=== PATIENT | male | born 1945 | race Caucasian/White ===

== ENCOUNTER 2023-06-04 22:10 | Inpatient (IN) | payer MEDICARE, BC, OTHER ==
[~2023-06-04 22:10] MED LIST: Iopamidol 370 76% 100 ML VIAL ONE
[2023-06-04 22:55] LABS: ALT (SGPT) 35 U/L (8-55); AST (SGOT) 43 U/L (5-34); Albumin 3.3 g/dL (3.4-4.8); Alkaline Phosphatase 56 U/L (40-110); Anion Gap 16 mmol/L (10-20); BUN (Urea Nitrogen) 20 mg/dL (8.4-25.7); Calc. Creatinine Clearance 0 mL/min (70-130); Calcium 7.6 mg/dL (7.8-10.44); Carbon Dioxide 17 mmol/L (23-31); Chloride 108 mmol/L (98-107); Estimated GFR 53; Globulin 1.4 g/dL (2.4-3.5); Glucose 98 mg/dL (83-110); Potassium 3.1 mmol/L (3.5-5.1); Protein, Total 4.7 g/dL (5.8-8.1); Sodium 138 mmol/L (136-145)
[2023-06-04 22:56] LABS: Hemoglobin 10.5 g/dL (13.5-17.5); Mean Corpuscular HGB CONC 33.9 g/dL (32.0-36.0); Mean Corpuscular Hemoglobin 34.9 pg (27.0-33.0); Platelet Count 124 10x3/uL (150-450); RBC Distribution Width 20.1 % (11.5-14.5); Red Blood Cell (RBC) Count 3.01 10x6/uL (4.32-5.72)
[2023-06-04 22:57] LABS: Bilirubin Neg (Negative); Blood, Urine 250 (Negative); Clarity Clear (Clear); Glucose, Urine (Dipstick) Normal (Negative); Ketone, Urine Negative (Negative); Leukocyte Negative (Negative); Nitrite Negative (Negative); Protein, Urine (Dipstick) 30 mg/dl (Neg-Trace); Urobilinogen Normal mg/dL (Less than 2)
[2023-06-04 22:58] LABS: MDiff Complete? YES
[2023-06-04 23:06] LABS: Acetaminophen Less than 10 mcg/mL (10.0-30.0); Alcohol Less than 10.0 mg/dL (Less than 10); Salicylate Less than 8.0 mg/dL (15.0-30.0)
[2023-06-04 23:08] LABS: Amphetamine Not Detected (NotDetected); Barbiturates Screen Not Detected (NotDetected); Benzodiazepine Screen Not Detected (NotDetected); Cocaine Metabolite Screen Not Detected (NotDetected); Methadone Not Detected (NotDetected); Methamphetamine Not Detected (NotDetected); Opiate Screen Detected (NotDetected); Oxycodone Screen Not Detected (NotDetected); Phencyclidine (PCP) Not Detected (NotDetected); THC/Cannabinoid Screen Not Detected (NotDetected); Tricyclic Screen Not Detected (NotDetected)
[2023-06-04 23:12] LABS: Troponin I 0.105 ng/mL (< 0.028)
[2023-06-04 23:17] LABS: Bacteria/HPF None Seen HPF (None Seen); CAUTI Indications for Culture Fever or rigors; RBC/HPF 0-3 HPF (0-3); Squamous Epithelial 0-3 HPF (0-3); WBC/HPF 0-3 HPF (0-3)
[2023-06-04 23:19] LABS: Urine Culture Reflex No No
[2023-06-04] MEDS ORDERED: HYDROcodone/Acetaminophen 5/325 mg Tablet ONE (23:26)
[2023-06-04 23:31] LABS: SARS-CoV-2 NAA Rapid Test Not Detected (NotDetected)
[2023-06-04] MEDS ORDERED: HYDROcodone/Acetaminophen 10/325 mg Tablet ONE (23:31)
[2023-06-04] MEDS ORDERED: traMADol HCl 50 MG TAB ONE (23:41)
[2023-06-04] MEDS ORDERED: VANCOMYCIN 2 GRAM/400 ML BAG 2 GM in Premix 1 BAG IVPB ONE (23:45)
[2023-06-05] MEDS ORDERED: Communication Order-Pharmacy FS ONE (00:21)
[2023-06-05] MEDS ORDERED: Lactated Ringer's 1,000 ML IV SCH (00:30)
[2023-06-05] MEDS ORDERED: NOREPINEPHRINE 8 MG/250 ML-D5W 250 ML IVPB SCH (00:30)
[2023-06-05 00:39] VITALS: BMI 27.6
[2023-06-05] MEDS ORDERED: Potassium Chloride 20 MEQ TAB PO SCH (00:45)
[2023-06-05] MEDS ORDERED: tiZANidine HCl 4 MG TAB PO PRN (00:49)
[2023-06-05] MEDS ORDERED: HYDROcodone/Acetaminophen 10/325 mg Tablet PO PRN (00:49)
[2023-06-05] MEDS ORDERED: Hydrocortisone Sod Succ/PF 100 mg/2 ml Vial IVP SCH (01:00)
[2023-06-05] MEDS ORDERED: Vasopressin 20 UNITS in Sodium Chloride 0.9% 50 ML IV SCH (01:00)
[2023-06-05 01:14] LABS: Lymphocytes 22 % (21-51); Neutrophil 40 % (42-75); Reactive Lymphocytes 2 % (0-10)
[2023-06-05 01:15] LABS: Monocytes 36 % (0-10)
[2023-06-05] MEDS: NS 0.9% w/ 40 MEQ KCL 1,000 ML IV SCH ×2 (01:17→06:04)
[2023-06-05 01:20] LABS: Anisocytosis SLIGHT = 6-15 cells (100X) (0-5/hpf); Crenated RBC SLIGHT = 1-5 cells (100X) (None Seen); Macrocytosis SLIGHT = 6-15 cells (100X) (0-5/hpf); Microcytosis SLIGHT = 6-15 cells (100X) (0-5/hpf); Ovalocytes SLIGHT = 2-5 cells (100X) (0-1/hpf); Schistocytes SLIGHT = 2-5 cells (100X) (0-1/hpf)
[2023-06-05 01:21] LABS: Platelet Adequacy Comment Appears Decreased
[2023-06-05 01:23] LABS: Reflex for Review?? YES
[2023-06-05] MEDS: LevoFLOXacin 750 mg/D5W 750 MG in Premix 1 BAG IVPB SCH (01:30)
[2023-06-05 01:39] LABS: Lactic Acid 3.8 mmol/L (0.5-2.2)
[2023-06-05 01:43] LABS: Magnesium 1.5 mg/dL (1.6-2.6)
[2023-06-05] MEDS: Cefepime 2 GM in Sodium Chloride 0.9% 100 ML IVPB SCH ×3 (01:55→17:41)
[2023-06-05] MEDS ORDERED: Magnesium 2 GM/50 ML(in water) 2 GM in Premix 1 BAG IVPB SCH (02:00)
[2023-06-05 02:23] LABS: Troponin I 0.133 ng/mL (< 0.028)
[2023-06-05 05:13] LABS: Hematocrit 31.1 % (38.8-50.0); Hemoglobin 10.6 g/dL (13.5-17.5); Mean Corpuscular HGB CONC 34.1 g/dL (32.0-36.0); Mean Corpuscular Hemoglobin 34.5 pg (27.0-33.0); Mean Corpuscular Volume 101.3 fl (81.2-95.1); Mean Platelet Volume 12.4 fl (7.4-10.4); Platelet Count 120 10x3/uL (150-450); RBC Distribution Width 20.1 % (11.5-14.5); Red Blood Cell (RBC) Count 3.07 10x6/uL (4.32-5.72); White Blood Cell (WBC) Count 1.2 10x3/uL (3.5-10.5)
[2023-06-05 05:14] LABS: Lactic Acid 2.1 mmol/L (0.5-2.2); MDiff Complete? YES
[2023-06-05 05:18] LABS: Anion Gap 16 mmol/L (10-20); BUN (Urea Nitrogen) 19 mg/dL (8.4-25.7); Calc. Creatinine Clearance 81 mL/min (70-130); Calcium 7.7 mg/dL (7.8-10.44); Carbon Dioxide 16 mmol/L (23-31); Chloride 110 mmol/L (98-107); Estimated GFR 74; Glucose 132 mg/dL (83-110); Potassium 4.4 mmol/L (3.5-5.1); Sodium 138 mmol/L (136-145)
[2023-06-05 05:24] LABS: Troponin I 0.114 ng/mL (< 0.028)
[2023-06-05] MEDS: Hydrocortisone Sod Succ/PF 100 mg/2 ml Vial IVP SCH ×4 (06:04→23:23)
[2023-06-05] MEDS ORDERED: Calcium Gluconate 4.6 MEQ in Sodium Chloride 0.9% 100 ML IVPB SCH (06:15)
[2023-06-05 06:27] LABS: Band 2 % (5-11); Lymphocytes 32 % (21-51); Monocytes 24 % (0-10); Neutrophil 42 % (42-75)
[2023-06-05 06:32] LABS: Crenated RBC SLIGHT = 1-5 cells (100X) (None Seen); Hypochromia SLIGHT = 6-15 cells (100X) (0-5/hpf); Macrocytosis SLIGHT = 6-15 cells (100X) (0-5/hpf); Microcytosis SLIGHT = 6-15 cells (100X) (0-5/hpf); Ovalocytes SLIGHT = 2-5 cells (100X) (0-1/hpf); Schistocytes SLIGHT = 2-5 cells (100X) (0-1/hpf); Target Cells SLIGHT = 2-5 cells (100X) (0-1/hpf)
[2023-06-05 06:33] LABS: Platelet Adequacy Comment Appears Decreased
[2023-06-05 06:34] LABS: Magnesium 1.9 mg/dL (1.6-2.6)
[2023-06-05] MEDS: traMADol HCl 50 MG TAB PO PRN ×2 (08:16→17:40)
[2023-06-05] MEDS: Pantoprazole 40 MG VIAL IVP SCH (08:16)
[2023-06-05] MEDS: Allopurinol 100 MG TAB PO SCH (08:16)
[2023-06-05] MEDS: Multivitamin W/ Minerals 1 TAB PO SCH (08:17)
[2023-06-05] MEDS: Lactated Ringer's 1,000 ML IV SCH ×3 (08:18→21:40)
[2023-06-05] MEDS: Apixaban 5 MG TAB PO SCH ×2 (08:36→20:05)
[2023-06-05] MEDS ORDERED: Apixaban 5 MG TAB PO SCH (09:00)
[2023-06-05] MEDS ORDERED: traMADol HCl 50 MG TAB PO SCH (09:00)
[2023-06-05] MEDS ORDERED: Pregabalin 50 MG CAP PO SCH (09:00)
[2023-06-05] MEDS: Timolol 0.5% Ophth Soln 5 ml Bottle EA EYE SCH ×2 (09:40→20:05)
[2023-06-05] MEDS: Oseltamivir 75 MG CAP PO SCH ×2 (09:40→20:04)
[2023-06-05] MEDS: valACYclovir 500 MG TAB PO SCH ×2 (09:40→20:05)
[2023-06-05] MEDS: Brimonidine Tartrate 0.2% Ophth Soln 5 ml Bottle EA EYE SCH ×2 (09:41→20:05)
[2023-06-05] MEDS: HYDROcodone/Acetaminophen 10/325 mg Tablet PO PRN ×2 (15:42→23:21)
[2023-06-05] MEDS: Benzonatate 100 MG CAP PO PRN ×2 (15:59→20:04)
[2023-06-05] MEDS: Benzocaine/Menthol 1 LOZ LOZ PO PRN (15:59)
[2023-06-05] MEDS: Folic Acid 1 MG TAB PO SCH (20:04)
[2023-06-05] MEDS: Tamsulosin HCl 0.4 MG CAP PO SCH (20:04)
[2023-06-05] MEDS: Rosuvastatin 20 MG TAB PO SCH (20:04)
[2023-06-05] MEDS: Cyanocobalamin (Vitamin B-12) 1,000 MCG TAB PO SCH (20:05)
[2023-06-05] MEDS: guaiFENesin/DM ER PO SCH (20:05)
[2023-06-05] MEDS: Latanoprost 0.005% Ophth Soln 2.5 ml Bottle L EYE SCH (20:53)
[2023-06-05] MEDS: VANCOMYCIN 2 GRAM/400 ML BAG 2 GM in Premix 1 BAG IVPB SCH (23:23)
[2023-06-06] MEDS: LevoFLOXacin 750 mg/D5W 750 MG in Premix 1 BAG IVPB SCH (01:55)
[2023-06-06] MEDS: Cefepime 2 GM in Sodium Chloride 0.9% 100 ML IVPB SCH ×3 (02:14→17:11)
[2023-06-06 04:39] LABS: Hematocrit 26.7 % (38.8-50.0); Hemoglobin 9.2 g/dL (13.5-17.5); Mean Corpuscular HGB CONC 34.5 g/dL (32.0-36.0); Mean Corpuscular Hemoglobin 34.8 pg (27.0-33.0); Mean Corpuscular Volume 101.1 fl (81.2-95.1); Mean Platelet Volume 12.5 fl (7.4-10.4); Platelet Count 88 10x3/uL (150-450); RBC Distribution Width 20.8 % (11.5-14.5); Red Blood Cell (RBC) Count 2.64 10x6/uL (4.32-5.72); White Blood Cell (WBC) Count 1.7 10x3/uL (3.5-10.5)
[2023-06-06 04:48] LABS: ALT (SGPT) 46 U/L (8-55); AST (SGOT) 70 U/L (5-34); Albumin 2.9 g/dL (3.4-4.8); Alkaline Phosphatase 41 U/L (40-110); Anion Gap 12 mmol/L (10-20); BUN (Urea Nitrogen) 22 mg/dL (8.4-25.7); Bilirubin, Total 1.1 mg/dL (0.2-1.2); Calc. Creatinine Clearance 94 mL/min (70-130); Calcium 7.6 mg/dL (7.8-10.44); Carbon Dioxide 17 mmol/L (23-31); Chloride 113 mmol/L (98-107); Estimated GFR 89; Globulin 1.8 g/dL (2.4-3.5); Glucose 105 mg/dL (83-110); Magnesium 1.9 mg/dL (1.6-2.6); Phosphorus 3.1 mg/dL (2.3-4.7); Potassium 4.7 mmol/L (3.5-5.1); Protein, Total 4.7 g/dL (5.8-8.1); Sodium 137 mmol/L (136-145)
[2023-06-06 05:01] LABS: CRP (Inflammatory) 28.84 mg/dL (= or < 0.5)
[2023-06-06 05:18] LABS: MDiff Complete? YES
[2023-06-06] MEDS: Hydrocortisone Sod Succ/PF 100 mg/2 ml Vial IVP SCH ×4 (05:52→23:10)
[2023-06-06] MEDS: Lactated Ringer's 1,000 ML IV SCH ×4 (05:53→23:11)
[2023-06-06 06:09] LABS: Band 22 % (5-11); Lymphocytes 23 % (21-51); Metamyelocyte 5 % (0-0); Monocytes 17 % (0-10); Myelocyte 1 % (0-0); Neutrophil 29 % (42-75); Reactive Lymphocytes 3 % (0-10)
[2023-06-06 06:11] LABS: Anisocytosis SLIGHT = 6-15 cells (100X) (0-5/hpf)
[2023-06-06 06:12] LABS: Crenated RBC MODERATE= 6-15 cells (100X) (None Seen); Microcytosis SLIGHT = 6-15 cells (100X) (0-5/hpf); Poikilocytosis MODERATE=16-30 cells (100X) (0-5/hpf); Schistocytes SLIGHT = 2-5 cells (100X) (0-1/hpf)
[2023-06-06 06:13] LABS: Target Cells SLIGHT = 2-5 cells (100X) (0-1/hpf)
[2023-06-06 06:15] LABS: Platelet Adequacy Comment Appears Decreased
[2023-06-06 06:16] LABS: Macrocytosis SLIGHT = 6-15 cells (100X) (0-5/hpf)
[2023-06-06] MEDS ORDERED: Magnesium 2 GM/50 ML(in water) 2 GM in Premix 1 BAG IVPB SCH (09:00)
[2023-06-06] MEDS: Apixaban 5 MG TAB PO SCH ×2 (09:08→20:50)
[2023-06-06] MEDS: Allopurinol 100 MG TAB PO SCH (09:08)
[2023-06-06] MEDS: valACYclovir 500 MG TAB PO SCH ×2 (09:08→20:49)
[2023-06-06] MEDS: Multivitamin W/ Minerals 1 TAB PO SCH (09:08)
[2023-06-06] MEDS: traMADol HCl 50 MG TAB PO PRN ×3 (09:09→23:07)
[2023-06-06] MEDS: Oseltamivir 75 MG CAP PO SCH ×2 (09:09→20:50)
[2023-06-06] MEDS: guaiFENesin/DM ER PO SCH ×2 (09:11→20:48)
[2023-06-06] MEDS: Timolol 0.5% Ophth Soln 5 ml Bottle EA EYE SCH ×2 (09:11→20:50)
[2023-06-06] MEDS: Pantoprazole 40 MG VIAL IVP SCH (09:11)
[2023-06-06] MEDS: Brimonidine Tartrate 0.2% Ophth Soln 5 ml Bottle EA EYE SCH ×2 (09:15→20:47)
[2023-06-06] MEDS: HYDROcodone/Acetaminophen 10/325 mg Tablet PO PRN ×2 (13:56→20:48)
[2023-06-06] MEDS: Latanoprost 0.005% Ophth Soln 2.5 ml Bottle L EYE SCH (20:47)
[2023-06-06] MEDS: Rosuvastatin 20 MG TAB PO SCH (20:47)
[2023-06-06] MEDS: Folic Acid 1 MG TAB PO SCH (20:47)
[2023-06-06] MEDS: Tamsulosin HCl 0.4 MG CAP PO SCH (20:48)
[2023-06-06] MEDS: Cyanocobalamin (Vitamin B-12) 1,000 MCG TAB PO SCH (20:50)
[2023-06-06] MEDS: Benzonatate 100 MG CAP PO PRN (20:50)
[2023-06-07 00:18] LABS: Vancomycin, Trough 11.8 ug/mL
[2023-06-07] MEDS: VANCOMYCIN 2 GRAM/400 ML BAG 2 GM in Premix 1 BAG IVPB SCH (00:37)
[2023-06-07] MEDS: LevoFLOXacin 750 mg/D5W 750 MG in Premix 1 BAG IVPB SCH (00:38)
[2023-06-07] MEDS: Cefepime 2 GM in Sodium Chloride 0.9% 100 ML IVPB SCH ×3 (02:00→17:13)
[2023-06-07] MEDS: HYDROcodone/Acetaminophen 10/325 mg Tablet PO PRN ×2 (03:33→11:16)
[2023-06-07 03:51] LABS: Hematocrit 24.3 % (38.8-50.0); Hemoglobin 8.5 g/dL (13.5-17.5); Mean Platelet Volume 13.4 fl (7.4-10.4); Platelet Count 77 10x3/uL (150-450); RBC Distribution Width 20.7 % (11.5-14.5); Red Blood Cell (RBC) Count 2.43 10x6/uL (4.32-5.72); White Blood Cell (WBC) Count 1.6 10x3/uL (3.5-10.5)
[2023-06-07 03:54] LABS: MDiff Complete? YES
[2023-06-07 04:04] LABS: ALT (SGPT) 44 U/L (8-55); AST (SGOT) 63 U/L (5-34); Albumin 2.7 g/dL (3.4-4.8); Alkaline Phosphatase 44 U/L (40-110); Anion Gap 11 mmol/L (10-20); BUN (Urea Nitrogen) 22 mg/dL (8.4-25.7); Bilirubin, Total 0.7 mg/dL (0.2-1.2); Calc. Creatinine Clearance 101 mL/min (70-130); Calcium 7.7 mg/dL (7.8-10.44); Carbon Dioxide 16 mmol/L (23-31); Chloride 113 mmol/L (98-107); Estimated GFR 90; Glucose 104 mg/dL (83-110); Phosphorus 2.3 mg/dL (2.3-4.7); Potassium 3.9 mmol/L (3.5-5.1); Protein, Total 4.7 g/dL (5.8-8.1); Sodium 136 mmol/L (136-145)
[2023-06-07] MEDS: Hydrocortisone Sod Succ/PF 100 mg/2 ml Vial IVP SCH ×2 (05:30→11:16)
[2023-06-07] MEDS: Benzocaine/Menthol 1 LOZ LOZ PO PRN (05:30)
[2023-06-07] MEDS: traMADol HCl 50 MG TAB PO PRN ×2 (05:51→14:22)
[2023-06-07 06:23] LABS: Band 7 % (5-11); Lymphocytes 12 % (21-51); Metamyelocyte 3 % (0-0); Monocytes 19 % (0-10); Neutrophil 58 % (42-75); Nucleated RBC (Manual Ct) 1 % (0); Other Cell Types 1
[2023-06-07 06:34] LABS: Anisocytosis MODERATE=16-30 cells (100X) (0-5/hpf)
[2023-06-07 06:35] LABS: Crenated RBC MODERATE= 6-15 cells (100X) (None Seen); Macrocytosis MODERATE=16-30 cells (100X) (0-5/hpf); Microcytosis SLIGHT = 6-15 cells (100X) (0-5/hpf); Poikilocytosis MODERATE=16-30 cells (100X) (0-5/hpf); Schistocytes SLIGHT = 2-5 cells (100X) (0-1/hpf)
[2023-06-07 06:36] LABS: Target Cells SLIGHT = 2-5 cells (100X) (0-1/hpf)
[2023-06-07 06:37] LABS: Hypochromia SLIGHT = 6-15 cells (100X) (0-5/hpf); Platelet Adequacy Comment Platelets Decreased
[2023-06-07] MEDS: Oseltamivir 75 MG CAP PO SCH ×2 (08:58→20:47)
[2023-06-07] MEDS: Multivitamin W/ Minerals 1 TAB PO SCH (08:58)
[2023-06-07] MEDS: Pantoprazole 40 MG VIAL IVP SCH (08:58)
[2023-06-07] MEDS: Allopurinol 100 MG TAB PO SCH (08:58)
[2023-06-07] MEDS: Apixaban 5 MG TAB PO SCH ×2 (08:58→20:44)
[2023-06-07] MEDS: guaiFENesin/DM ER PO SCH ×2 (08:58→20:45)
[2023-06-07] MEDS: valACYclovir 500 MG TAB PO SCH ×2 (08:58→21:00)
[2023-06-07] MEDS: Brimonidine Tartrate 0.2% Ophth Soln 5 ml Bottle EA EYE SCH ×2 (08:59→20:48)
[2023-06-07] MEDS: Timolol 0.5% Ophth Soln 5 ml Bottle EA EYE SCH ×2 (09:00→20:48)
[2023-06-07] MEDS: Lactated Ringer's 1,000 ML IV SCH (09:12)
[2023-06-07] MEDS ORDERED: Lactated Ringer's 1,000 ML IV SCH ×2 (15:44→18:23)
[2023-06-07] MEDS: predniSONE 20 MG TAB PO SCH (16:25)
[2023-06-07] MEDS ORDERED: Potassium Bicarbonate/Cit Ac 20 MEQ TAB PO SCH (17:00)
[2023-06-07] MEDS: Folic Acid 1 MG TAB PO SCH (20:44)
[2023-06-07] MEDS: Cyanocobalamin (Vitamin B-12) 1,000 MCG TAB PO SCH (20:44)
[2023-06-07] MEDS: Melatonin 3 MG TAB PO SCH (20:45)
[2023-06-07] MEDS: Tamsulosin HCl 0.4 MG CAP PO SCH (20:46)
[2023-06-07] MEDS: Rosuvastatin 20 MG TAB PO SCH (20:46)
[2023-06-07] MEDS: Sodium Bicarbonate Tab 325 MG TAB PO SCH (20:47)
[2023-06-07] MEDS: Latanoprost 0.005% Ophth Soln 2.5 ml Bottle L EYE SCH (20:50)
[2023-06-08] MEDS: VANCOMYCIN 2 GRAM/400 ML BAG 2 GM in Premix 1 BAG IVPB SCH (00:33)
[2023-06-08] MEDS: LevoFLOXacin 750 mg/D5W 750 MG in Premix 1 BAG IVPB SCH (02:10)
[2023-06-08] MEDS: Acetaminophen 325 MG TAB PO PRN ×2 (05:59→23:19)
[2023-06-08] MEDS: Cefepime 2 GM in Sodium Chloride 0.9% 100 ML IVPB SCH ×3 (05:59→18:02)
[2023-06-08] MEDS: traMADol HCl 50 MG TAB PO PRN (06:05)
[2023-06-08 07:48] LABS: Hematocrit 26.5 % (38.8-50.0); Hemoglobin 9.1 g/dL (13.5-17.5); Mean Corpuscular HGB CONC 34.3 g/dL (32.0-36.0); Mean Corpuscular Hemoglobin 34.5 pg (27.0-33.0); Mean Corpuscular Volume 100.4 fl (81.2-95.1); Mean Platelet Volume 14.3 fl (7.4-10.4); Platelet Count 64 10x3/uL (150-450); Red Blood Cell (RBC) Count 2.64 10x6/uL (4.32-5.72); White Blood Cell (WBC) Count 1.1 10x3/uL (3.5-10.5)
[2023-06-08 08:02] LABS: ALT (SGPT) 52 U/L (8-55); AST (SGOT) 61 U/L (5-34); Albumin 2.9 g/dL (3.4-4.8); Alkaline Phosphatase 49 U/L (40-110); Anion Gap 13 mmol/L (10-20); BUN (Urea Nitrogen) 21 mg/dL (8.4-25.7); Bilirubin, Total 0.6 mg/dL (0.2-1.2); Calc. Creatinine Clearance 96 mL/min (70-130); Carbon Dioxide 17 mmol/L (23-31); Chloride 112 mmol/L (98-107); Critical Call Chemistry NUR.WB AT 0801; Estimated GFR 89; Globulin 2.2 g/dL (2.4-3.5); Glucose 112 mg/dL (83-110); Magnesium 1.8 mg/dL (1.6-2.6); Phosphorus 1.5 mg/dL (2.3-4.7); Protein, Total 5.1 g/dL (5.8-8.1); Sodium 138 mmol/L (136-145)
[2023-06-08] MEDS ORDERED: Ipratropium/Albuterol 3 ML NEB NEB SCH (08:15)
[2023-06-08] MEDS ORDERED: Furosemide 20 MG (2 mL) VIAL SLOW IVP SCH (09:00)
[2023-06-08] MEDS: valACYclovir 500 MG TAB PO SCH ×2 (09:01→20:51)
[2023-06-08] MEDS: predniSONE 20 MG TAB PO SCH ×2 (09:02→15:57)
[2023-06-08] MEDS: Allopurinol 100 MG TAB PO SCH (09:02)
[2023-06-08] MEDS: Multivitamin W/ Minerals 1 TAB PO SCH (09:02)
[2023-06-08] MEDS: Oseltamivir 75 MG CAP PO SCH ×2 (09:03→20:48)
[2023-06-08] MEDS: Brimonidine Tartrate 0.2% Ophth Soln 5 ml Bottle EA EYE SCH ×2 (09:03→20:49)
[2023-06-08] MEDS: Sodium Bicarbonate Tab 325 MG TAB PO SCH ×3 (09:03→20:47)
[2023-06-08] MEDS: Pantoprazole 40 MG VIAL IVP SCH (09:05)
[2023-06-08] MEDS: Timolol 0.5% Ophth Soln 5 ml Bottle EA EYE SCH ×2 (09:15→20:49)
[2023-06-08 09:31] LABS: Band 6 % (5-11); Lymphocytes 18 % (21-51); Monocytes 15 % (0-10); Neutrophil 57 % (42-75); Reactive Lymphocytes 4 % (0-10)
[2023-06-08 09:39] LABS: Anisocytosis SLIGHT = 6-15 cells (100X) (0-5/hpf); Burr Cells SLIGHT = 2-5 cells (100X) (0-1/hpf); Crenated RBC SLIGHT = 1-5 cells (100X) (None Seen); Macrocytosis SLIGHT = 6-15 cells (100X) (0-5/hpf); Microcytosis SLIGHT = 6-15 cells (100X) (0-5/hpf); Ovalocytes SLIGHT = 2-5 cells (100X) (0-1/hpf); Poikilocytosis SLIGHT = 6-15 cells (100X) (0-5/hpf)
[2023-06-08 09:40] LABS: Target Cells SLIGHT = 2-5 cells (100X) (0-1/hpf)
[2023-06-08 09:42] LABS: Schistocytes SLIGHT = 2-5 cells (100X) (0-1/hpf)
[2023-06-08 09:45] LABS: Large Platelets MODERATE (None Seen); Platelet Adequacy Comment Appears Decreased
[2023-06-08 09:46] LABS: Dohle Bodies SLIGHT; Hypersegmented Neutrophil SLIGHT
[2023-06-08 09:48] LABS: MDiff Complete? YES
[2023-06-08] MEDS: Ipratropium/Albuterol 3 ML NEB NEB SCH ×4 (10:05→23:15)
[2023-06-08] MEDS: guaiFENesin/DM ER PO SCH ×2 (11:07→20:48)
[2023-06-08] MEDS ORDERED: Ondansetron PF 4 MG/2 ML Vial IVP SCH (12:45)
[2023-06-08] MEDS: Benzonatate 100 MG CAP PO PRN (13:30)
[2023-06-08 14:36] LABS: Anion Gap 15 mmol/L (10-20); BUN (Urea Nitrogen) 18 mg/dL (8.4-25.7); Calc. Creatinine Clearance 90 mL/min (70-130); Calcium 8.3 mg/dL (7.8-10.44); Carbon Dioxide 17 mmol/L (23-31); Chloride 110 mmol/L (98-107); Estimated GFR 84; Glucose 108 mg/dL (83-110); Potassium 4.1 mmol/L (3.5-5.1); Sodium 138 mmol/L (136-145)
[2023-06-08] MEDS: HYDROcodone/Acetaminophen 10/325 mg Tablet PO PRN ×2 (16:48→23:14)
[2023-06-08] MEDS ORDERED: Ondansetron PF 4 MG/2 ML Vial IVP PRN (17:49)
[2023-06-08] MEDS: Micafungin 100 MG in Sodium Chloride 0.9% 100 ML IVPB SCH (18:03)
[2023-06-08] MEDS: Rosuvastatin 20 MG TAB PO SCH (20:47)
[2023-06-08] MEDS: Tamsulosin HCl 0.4 MG CAP PO SCH (20:48)
[2023-06-08] MEDS: Cyanocobalamin (Vitamin B-12) 1,000 MCG TAB PO SCH (20:48)
[2023-06-08] MEDS: Folic Acid 1 MG TAB PO SCH (20:48)
[2023-06-08] MEDS: Apixaban 5 MG TAB PO SCH (20:48)
[2023-06-08] MEDS: Latanoprost 0.005% Ophth Soln 2.5 ml Bottle L EYE SCH (20:49)
[2023-06-08] MEDS ORDERED: Doxepin HCl 10 MG CAP PO PRN (20:51)
[2023-06-08] MEDS: Melatonin 3 MG TAB PO SCH (21:04)
[2023-06-08] MEDS: Vancomycin 1 GM in Sodium Chloride 0.9% 250 ML 250 ML IVPB SCH (23:15)
[2023-06-09] MEDS: LevoFLOXacin 750 mg/D5W 750 MG in Premix 1 BAG IVPB SCH (00:19)
[2023-06-09] MEDS ORDERED: Ibuprofen 200 MG TAB PO PRN (01:33)
[2023-06-09] MEDS: Cefepime 2 GM in Sodium Chloride 0.9% 100 ML IVPB SCH ×3 (01:50→17:56)
[2023-06-09] MEDS: Ipratropium/Albuterol 3 ML NEB NEB SCH ×6 (03:35→22:05)
[2023-06-09] MEDS: HYDROcodone/Acetaminophen 10/325 mg Tablet PO PRN ×2 (05:01→13:57)
[2023-06-09 06:18] LABS: ALT (SGPT) 64 U/L (8-55); AST (SGOT) 73 U/L (5-34); Albumin 2.9 g/dL (3.4-4.8); Alkaline Phosphatase 50 U/L (40-110); Anion Gap 13 mmol/L (10-20); BUN (Urea Nitrogen) 14 mg/dL (8.4-25.7); Bilirubin, Total 0.8 mg/dL (0.2-1.2); Calc. Creatinine Clearance 104 mL/min (70-130); Calcium 7.9 mg/dL (7.8-10.44); Carbon Dioxide 17 mmol/L (23-31); Chloride 109 mmol/L (98-107); Estimated GFR 91; Globulin 2.3 g/dL (2.4-3.5); Glucose 123 mg/dL (83-110); Magnesium 1.6 mg/dL (1.6-2.6); Phosphorus 1.8 mg/dL (2.3-4.7); Protein, Total 5.2 g/dL (5.8-8.1); Sodium 136 mmol/L (136-145)
[2023-06-09 07:09] LABS: Critical Call w/ Read Back NUR.KM21 @0704
[2023-06-09 07:47] LABS: Hematocrit 25.1 % (38.8-50.0); Hemoglobin 8.8 g/dL (13.5-17.5); Mean Corpuscular HGB CONC 35.1 g/dL (32.0-36.0); Mean Corpuscular Hemoglobin 34.2 pg (27.0-33.0); Mean Corpuscular Volume 97.7 fl (81.2-95.1); Mean Platelet Volume 13.6 fl (7.4-10.4); Platelet Count 66 10x3/uL (150-450); RBC Distribution Width 20.1 % (11.5-14.5); Red Blood Cell (RBC) Count 2.57 10x6/uL (4.32-5.72)
[2023-06-09 07:48] LABS: White Blood Cell (WBC) Count 0.8 10x3/uL (3.5-10.5)
[2023-06-09 09:12] LABS: Band 14 % (5-11); Lymphocytes 15 % (21-51); Monocytes 20 % (0-10); Nucleated RBC (Manual Ct) 2 % (0); Reactive Lymphocytes 3 % (0-10)
[2023-06-09 09:13] LABS: Neutrophil 48 % (42-75)
[2023-06-09 09:14] LABS: Anisocytosis SLIGHT = 6-15 cells (100X) (0-5/hpf); Burr Cells SLIGHT = 2-5 cells (100X) (0-1/hpf); Crenated RBC SLIGHT = 1-5 cells (100X) (None Seen); Macrocytosis SLIGHT = 6-15 cells (100X) (0-5/hpf); Microcytosis SLIGHT = 6-15 cells (100X) (0-5/hpf); Ovalocytes SLIGHT = 2-5 cells (100X) (0-1/hpf); Poikilocytosis SLIGHT = 6-15 cells (100X) (0-5/hpf)
[2023-06-09 09:15] LABS: Target Cells SLIGHT = 2-5 cells (100X) (0-1/hpf)
[2023-06-09 09:17] LABS: Schistocytes SLIGHT = 2-5 cells (100X) (0-1/hpf)
[2023-06-09 09:18] LABS: Large Platelets MODERATE (None Seen); Platelet Adequacy Comment Appears Decreased
[2023-06-09 09:19] LABS: Platelet Clumps SLIGHT; Toxic Granulation MODERATE; Vacuoles SLIGHT
[2023-06-09 09:21] LABS: MDiff Complete? YES
[2023-06-09 09:22] LABS: Dohle Bodies SLIGHT
[2023-06-09] MEDS: Pantoprazole 40 MG VIAL IVP SCH (09:24)
[2023-06-09] MEDS: Magnesium 2 GM/50 ML(in water) 2 GM in Premix 1 BAG IVPB SCH ×2 (09:26→11:05)
[2023-06-09] MEDS: Allopurinol 100 MG TAB PO SCH (09:28)
[2023-06-09] MEDS: Benzonatate 100 MG CAP PO PRN (09:28)
[2023-06-09] MEDS: Multivitamin W/ Minerals 1 TAB PO SCH (09:29)
[2023-06-09] MEDS: predniSONE 20 MG TAB PO SCH ×2 (09:29→16:27)
[2023-06-09] MEDS: Timolol 0.5% Ophth Soln 5 ml Bottle EA EYE SCH ×2 (09:30→20:42)
[2023-06-09] MEDS: Oseltamivir 75 MG CAP PO SCH ×2 (09:31→20:43)
[2023-06-09] MEDS: guaiFENesin/DM ER PO SCH ×2 (09:31→20:43)
[2023-06-09] MEDS: Brimonidine Tartrate 0.2% Ophth Soln 5 ml Bottle EA EYE SCH ×2 (09:32→20:42)
[2023-06-09] MEDS: valACYclovir 500 MG TAB PO SCH ×2 (11:06→20:40)
[2023-06-09] MEDS: Vancomycin 1 GM in Sodium Chloride 0.9% 250 ML 250 ML IVPB SCH ×2 (11:06→23:30)
[2023-06-09] MEDS: Micafungin 100 MG in Sodium Chloride 0.9% 100 ML IVPB SCH (16:27)
[2023-06-09] MEDS ORDERED: Potassium Bicarbonate/Cit Ac 20 MEQ TAB PO SCH (17:00)
[2023-06-09] MEDS: tiZANidine HCl 4 MG TAB PO PRN (20:39)
[2023-06-09] MEDS: Folic Acid 1 MG TAB PO SCH (20:40)
[2023-06-09] MEDS: Tamsulosin HCl 0.4 MG CAP PO SCH (20:40)
[2023-06-09] MEDS: Melatonin 3 MG TAB PO SCH (20:40)
[2023-06-09] MEDS: Rosuvastatin 20 MG TAB PO SCH (20:40)
[2023-06-09] MEDS: traMADol HCl 50 MG TAB PO PRN (20:40)
[2023-06-09] MEDS: Apixaban 5 MG TAB PO SCH (20:40)
[2023-06-09] MEDS: Cyanocobalamin (Vitamin B-12) 1,000 MCG TAB PO SCH (20:40)
[2023-06-09] MEDS: Acetaminophen 325 MG TAB PO PRN (20:41)
[2023-06-09] MEDS: Latanoprost 0.005% Ophth Soln 2.5 ml Bottle L EYE SCH (20:42)
[2023-06-10] MEDS: Benzonatate 100 MG CAP PO PRN (01:06)
[2023-06-10] MEDS: LevoFLOXacin 750 mg/D5W 750 MG in Premix 1 BAG IVPB SCH (01:06)
[2023-06-10] MEDS: Ipratropium/Albuterol 3 ML NEB NEB SCH ×7 (01:45→23:57)
[2023-06-10] MEDS: Cefepime 2 GM in Sodium Chloride 0.9% 100 ML IVPB SCH ×3 (02:30→18:03)
[2023-06-10] MEDS: HYDROcodone/Acetaminophen 10/325 mg Tablet PO PRN ×3 (03:43→23:56)
[2023-06-10] MEDS ORDERED: GUAIFENESIN SF SOLN 200 MG/10 ML UDCUP PO PRN (03:52)
[2023-06-10 05:51] LABS: ALT (SGPT) 83 U/L (8-55); AST (SGOT) 98 U/L (5-34); Albumin 2.9 g/dL (3.4-4.8); Alkaline Phosphatase 59 U/L (40-110); Anion Gap 12 mmol/L (10-20); BUN (Urea Nitrogen) 18 mg/dL (8.4-25.7); Bilirubin, Total 0.5 mg/dL (0.2-1.2); Calc. Creatinine Clearance 102 mL/min (70-130); Calcium 8.1 mg/dL (7.8-10.44); Carbon Dioxide 18 mmol/L (23-31); Chloride 113 mmol/L (98-107); Estimated GFR 91; Globulin 2.5 g/dL (2.4-3.5); Glucose 132 mg/dL (83-110); Magnesium 2.2 mg/dL (1.6-2.6); Phosphorus 1.9 mg/dL (2.3-4.7); Potassium 3.8 mmol/L (3.5-5.1); Protein, Total 5.4 g/dL (5.8-8.1); Sodium 139 mmol/L (136-145)
[2023-06-10 06:27] LABS: Hematocrit 25.8 % (38.8-50.0); Hemoglobin 9.3 g/dL (13.5-17.5); Mean Platelet Volume 13.6 fl (7.4-10.4); RBC Distribution Width 20.4 % (11.5-14.5); Red Blood Cell (RBC) Count 2.66 10x6/uL (4.32-5.72); White Blood Cell (WBC) Count 1.7 10x3/uL (3.5-10.5)
[2023-06-10 06:36] LABS: MDiff Complete? YES; Platelet Count 70 10x3/uL (150-450)
[2023-06-10 07:02] LABS: Band 24 % (5-11); Lymphocytes 10 % (21-51); Metamyelocyte 5 % (0-0); Monocytes 3 % (0-10); Myelocyte 1 % (0-0); Neutrophil 57 % (42-75)
[2023-06-10 07:04] LABS: Anisocytosis MARKED = >30 cells (100X) (0-5/hpf); Microcytosis SLIGHT = 6-15 cells (100X) (0-5/hpf); Poikilocytosis MARKED = >30 cells (100X) (0-5/hpf)
[2023-06-10 07:05] LABS: Crenated RBC MARKED = >16 cells (100X) (None Seen); Hypochromia MODERATE=16-30 cells (100X) (0-5/hpf); Macrocytosis MODERATE=16-30 cells (100X) (0-5/hpf); Platelet Adequacy Comment Significant decrease; Schistocytes SLIGHT = 2-5 cells (100X) (0-1/hpf)
[2023-06-10] MEDS: Apixaban 5 MG TAB PO SCH ×2 (09:18→20:29)
[2023-06-10] MEDS: predniSONE 20 MG TAB PO SCH ×2 (09:18→16:15)
[2023-06-10] MEDS: Brimonidine Tartrate 0.2% Ophth Soln 5 ml Bottle EA EYE SCH ×2 (09:19→20:30)
[2023-06-10] MEDS: Allopurinol 100 MG TAB PO SCH (09:19)
[2023-06-10] MEDS: Multivitamin W/ Minerals 1 TAB PO SCH (09:19)
[2023-06-10] MEDS: guaiFENesin/DM ER PO SCH ×2 (09:21→20:28)
[2023-06-10] MEDS: Timolol 0.5% Ophth Soln 5 ml Bottle EA EYE SCH ×3 (09:25→20:29)
[2023-06-10] MEDS: valACYclovir 500 MG TAB PO SCH ×2 (10:37→20:28)
[2023-06-10] MEDS ORDERED: Melatonin 3 MG TAB PO SCH (10:47)
[2023-06-10] MEDS ORDERED: Doxylamine 25 MG TAB PO PRN (10:49)
[2023-06-10 12:15] LABS: Vancomycin, Trough 13.9 ug/mL
[2023-06-10] MEDS: Vancomycin 1 GM in Sodium Chloride 0.9% 250 ML 250 ML IVPB SCH ×2 (13:26→23:24)
[2023-06-10] MEDS: guaiFENesin/Codeine Phosphate 100 mg/10 mg 5 ml UD Cup PO PRN ×2 (14:45→20:29)
[2023-06-10] MEDS: Micafungin 100 MG in Sodium Chloride 0.9% 100 ML IVPB SCH (16:15)
[2023-06-10] MEDS: Acetaminophen 325 MG TAB PO PRN (16:30)
[2023-06-10] MEDS: Latanoprost 0.005% Ophth Soln 2.5 ml Bottle L EYE SCH (20:29)
[2023-06-10] MEDS: Tamsulosin HCl 0.4 MG CAP PO SCH (20:29)
[2023-06-10] MEDS: Cyanocobalamin (Vitamin B-12) 1,000 MCG TAB PO SCH (20:29)
[2023-06-10] MEDS: Rosuvastatin 20 MG TAB PO SCH (20:29)
[2023-06-10] MEDS: Ibuprofen 200 MG TAB PO PRN (20:29)
[2023-06-10] MEDS: tiZANidine HCl 4 MG TAB PO PRN (20:29)
[2023-06-10] MEDS: Folic Acid 1 MG TAB PO SCH (20:29)
[2023-06-10] MEDS: Melatonin 3 MG TAB PO SCH (21:25)
[2023-06-11] MEDS: LevoFLOXacin 750 mg/D5W 750 MG in Premix 1 BAG IVPB SCH (00:39)
[2023-06-11] MEDS: Cefepime 2 GM in Sodium Chloride 0.9% 100 ML IVPB SCH ×3 (02:12→19:57)
[2023-06-11] MEDS: guaiFENesin/Codeine Phosphate 100 mg/10 mg 5 ml UD Cup PO PRN ×3 (02:58→19:56)
[2023-06-11] MEDS: traMADol HCl 50 MG TAB PO PRN ×2 (02:58→17:02)
[2023-06-11] MEDS: Ipratropium/Albuterol 3 ML NEB NEB SCH ×6 (04:16→23:22)
[2023-06-11] MEDS: HYDROcodone/Acetaminophen 10/325 mg Tablet PO PRN ×3 (06:13→19:54)
[2023-06-11 06:19] LABS: Hematocrit 26.8 % (38.8-50.0); Hemoglobin 9.6 g/dL (13.5-17.5); Mean Corpuscular HGB CONC 35.8 g/dL (32.0-36.0); Mean Corpuscular Hemoglobin 35.2 pg (27.0-33.0); Mean Corpuscular Volume 98.2 fl (81.2-95.1); Mean Platelet Volume 14.2 fl (7.4-10.4); RBC Distribution Width 20.9 % (11.5-14.5); Red Blood Cell (RBC) Count 2.73 10x6/uL (4.32-5.72); White Blood Cell (WBC) Count 5.6 10x3/uL (3.5-10.5)
[2023-06-11 06:20] LABS: Platelet Count 69 10x3/uL (150-450)
[2023-06-11 06:21] LABS: MDiff Complete? YES
[2023-06-11 06:48] LABS: Band 31 % (5-11); Lymphocytes 1 % (21-51); Metamyelocyte 3 % (0-0); Neutrophil 59 % (42-75); Nucleated RBC (Manual Ct) 1 % (0); Promyelocytes 1 % (0-0); Reactive Lymphocytes 5 % (0-10)
[2023-06-11 06:50] LABS: Anisocytosis MARKED = >30 cells (100X) (0-5/hpf); Crenated RBC MODERATE= 6-15 cells (100X) (None Seen); Poikilocytosis MODERATE=16-30 cells (100X) (0-5/hpf); Stomatocytes SLIGHT = 2-5 cells (100X) (0-1/hpf)
[2023-06-11 06:51] LABS: Target Cells SLIGHT = 2-5 cells (100X) (0-1/hpf)
[2023-06-11 06:54] LABS: Schistocytes SLIGHT = 2-5 cells (100X) (0-1/hpf)
[2023-06-11 06:56] LABS: Platelet Adequacy Comment Significant decrease
[2023-06-11] MEDS ORDERED: OCTAGAM 10% (10 GM/100 ML VIAL) IVPB SCH (07:00)
[2023-06-11] MEDS: Allopurinol 100 MG TAB PO SCH (08:38)
[2023-06-11] MEDS: guaiFENesin/DM ER PO SCH ×2 (08:38→21:45)
[2023-06-11] MEDS: Apixaban 5 MG TAB PO SCH ×2 (08:38→21:47)
[2023-06-11] MEDS: predniSONE 20 MG TAB PO SCH ×2 (08:38→17:02)
[2023-06-11] MEDS: Brimonidine Tartrate 0.2% Ophth Soln 5 ml Bottle EA EYE SCH ×2 (08:39→21:48)
[2023-06-11] MEDS: Multivitamin W/ Minerals 1 TAB PO SCH (08:39)
[2023-06-11] MEDS: Timolol 0.5% Ophth Soln 5 ml Bottle EA EYE SCH ×2 (08:39→23:11)
[2023-06-11] MEDS: valACYclovir 500 MG TAB PO SCH ×2 (08:40→21:46)
[2023-06-11] MEDS ORDERED: OCTAGAM 10% (10 GM/100 ML VIAL) IVPB ONE (09:00)
[2023-06-11] MEDS: Vancomycin 1 GM in Sodium Chloride 0.9% 250 ML 250 ML IVPB SCH (11:30)
[2023-06-11] MEDS: Micafungin 100 MG in Sodium Chloride 0.9% 100 ML IVPB SCH (17:02)
[2023-06-11] MEDS: Tamsulosin HCl 0.4 MG CAP PO SCH (21:46)
[2023-06-11] MEDS: Folic Acid 1 MG TAB PO SCH (21:46)
[2023-06-11] MEDS: Rosuvastatin 20 MG TAB PO SCH (21:46)
[2023-06-11] MEDS: Melatonin 3 MG TAB PO SCH (21:47)
[2023-06-11] MEDS: Cyanocobalamin (Vitamin B-12) 1,000 MCG TAB PO SCH (21:47)
[2023-06-11] MEDS: Latanoprost 0.005% Ophth Soln 2.5 ml Bottle L EYE SCH (21:49)
[2023-06-11] MEDS: Benzonatate 100 MG CAP PO PRN (22:32)
[2023-06-12] MEDS: HYDROcodone/Acetaminophen 10/325 mg Tablet PO PRN ×4 (01:57→21:20)
[2023-06-12] MEDS: Ipratropium/Albuterol 3 ML NEB NEB SCH ×6 (02:10→23:10)
[2023-06-12] MEDS: guaiFENesin/Codeine Phosphate 100 mg/10 mg 5 ml UD Cup PO PRN ×4 (02:33→23:48)
[2023-06-12] MEDS: LevoFLOXacin 750 mg/D5W 750 MG in Premix 1 BAG IVPB SCH (02:36)
[2023-06-12] MEDS: Cefepime 2 GM in Sodium Chloride 0.9% 100 ML IVPB SCH ×3 (03:38→17:57)
[2023-06-12 06:18] LABS: ALT (SGPT) 125 U/L (8-55); AST (SGOT) 128 U/L (5-34); Albumin 2.8 g/dL (3.4-4.8); Alkaline Phosphatase 74 U/L (40-110); Anion Gap 11 mmol/L (10-20); BUN (Urea Nitrogen) 20 mg/dL (8.4-25.7); Bilirubin, Total 0.5 mg/dL (0.2-1.2); Calc. Creatinine Clearance 101 mL/min (70-130); Calcium 8.1 mg/dL (7.8-10.44); Carbon Dioxide 20 mmol/L (23-31); Chloride 111 mmol/L (98-107); Estimated GFR 90; Globulin 2.4 g/dL (2.4-3.5); Glucose 115 mg/dL (83-110); Magnesium 1.9 mg/dL (1.6-2.6); Protein, Total 5.2 g/dL (5.8-8.1); Sodium 138 mmol/L (136-145)
[2023-06-12 06:26] LABS: Hemoglobin 9.5 g/dL (13.5-17.5); Mean Corpuscular HGB CONC 35.2 g/dL (32.0-36.0); Mean Corpuscular Hemoglobin 34.5 pg (27.0-33.0); Mean Corpuscular Volume 98.2 fl (81.2-95.1); RBC Distribution Width 20.9 % (11.5-14.5); Red Blood Cell (RBC) Count 2.75 10x6/uL (4.32-5.72); White Blood Cell (WBC) Count 10.6 10x3/uL (3.5-10.5)
[2023-06-12 06:27] LABS: Platelet Count 83 10x3/uL (150-450)
[2023-06-12 07:15] LABS: Band 14 % (5-11); Metamyelocyte 1 % (0-0); Monocytes 2 % (0-10); Nucleated RBC (Manual Ct) 2 % (0); Reactive Lymphocytes 3 % (0-10)
[2023-06-12 07:16] LABS: Anisocytosis MODERATE=16-30 cells (100X) (0-5/hpf); Poikilocytosis MODERATE=16-30 cells (100X) (0-5/hpf)
[2023-06-12 07:17] LABS: Crenated RBC MODERATE= 6-15 cells (100X) (None Seen); Hypochromia SLIGHT = 6-15 cells (100X) (0-5/hpf); Macrocytosis MODERATE=16-30 cells (100X) (0-5/hpf); Microcytosis SLIGHT = 6-15 cells (100X) (0-5/hpf); Target Cells SLIGHT = 2-5 cells (100X) (0-1/hpf)
[2023-06-12 07:18] LABS: Schistocytes SLIGHT = 2-5 cells (100X) (0-1/hpf); Toxic Granulation SLIGHT
[2023-06-12 07:21] LABS: MDiff Complete? YES; Platelet Adequacy Comment Appears Decreased
[2023-06-12] MEDS: predniSONE 20 MG TAB PO SCH ×2 (08:30→15:59)
[2023-06-12] MEDS: Allopurinol 100 MG TAB PO SCH (08:30)
[2023-06-12] MEDS: guaiFENesin/DM ER PO SCH ×2 (08:30→21:15)
[2023-06-12] MEDS: Apixaban 5 MG TAB PO SCH ×2 (08:30→21:14)
[2023-06-12] MEDS: valACYclovir 500 MG TAB PO SCH ×2 (08:30→21:15)
[2023-06-12] MEDS: Brimonidine Tartrate 0.2% Ophth Soln 5 ml Bottle EA EYE SCH ×2 (08:31→21:16)
[2023-06-12] MEDS: Timolol 0.5% Ophth Soln 5 ml Bottle EA EYE SCH ×3 (08:31→21:45)
[2023-06-12] MEDS: Multivitamin W/ Minerals 1 TAB PO SCH (10:06)
[2023-06-12] MEDS: traMADol HCl 50 MG TAB PO PRN ×3 (12:26→23:48)
[2023-06-12] MEDS ORDERED: diphenhydrAMINE 25 MG CAP PO SCH (12:30)
[2023-06-12] MEDS ORDERED: Acetaminophen 500 MG TAB PO SCH (12:30)
[2023-06-12] MEDS ORDERED: PRIVIGEN IVPB SCH (13:00)
[2023-06-12] MEDS: Benzonatate 100 MG CAP PO PRN ×2 (15:59→23:49)
[2023-06-12] MEDS: Rosuvastatin 20 MG TAB PO SCH (21:14)
[2023-06-12] MEDS: Tamsulosin HCl 0.4 MG CAP PO SCH (21:14)
[2023-06-12] MEDS: Melatonin 3 MG TAB PO SCH (21:14)
[2023-06-12] MEDS: Folic Acid 1 MG TAB PO SCH (21:14)
[2023-06-12] MEDS: Cyanocobalamin (Vitamin B-12) 1,000 MCG TAB PO SCH (21:15)
[2023-06-12] MEDS: Latanoprost 0.005% Ophth Soln 2.5 ml Bottle L EYE SCH (21:17)
[2023-06-13] MEDS: LevoFLOXacin 750 mg/D5W 750 MG in Premix 1 BAG IVPB SCH (00:38)
[2023-06-13] MEDS: HYDROcodone/Acetaminophen 10/325 mg Tablet PO PRN ×4 (02:06→21:46)
[2023-06-13] MEDS: Cefepime 2 GM in Sodium Chloride 0.9% 100 ML IVPB SCH ×3 (02:10→18:45)
[2023-06-13] MEDS: Ipratropium/Albuterol 3 ML NEB NEB SCH ×6 (03:00→22:40)
[2023-06-13] MEDS ORDERED: Ondansetron PF 4 MG/2 ML Vial IVP PRN (03:34)
[2023-06-13 04:25] LABS: Hematocrit 21.9 % (38.8-50.0); Hemoglobin 7.8 g/dL (13.5-17.5); Mean Corpuscular HGB CONC 35.6 g/dL (32.0-36.0); Mean Corpuscular Hemoglobin 34.7 pg (27.0-33.0); Mean Corpuscular Volume 97.3 fl (81.2-95.1); Mean Platelet Volume 13.5 fl (7.4-10.4); Platelet Count 105 10x3/uL (150-450); RBC Distribution Width 20.7 % (11.5-14.5); Red Blood Cell (RBC) Count 2.25 10x6/uL (4.32-5.72); White Blood Cell (WBC) Count 13.9 10x3/uL (3.5-10.5)
[2023-06-13 04:26] LABS: MDiff Complete? YES
[2023-06-13 05:39] LABS: Band 7 % (5-11); Lymphocytes 3 % (21-51); Neutrophil 90 % (42-75)
[2023-06-13 05:47] LABS: Hypochromia SLIGHT = 6-15 cells (100X) (0-5/hpf); Microcytosis SLIGHT = 6-15 cells (100X) (0-5/hpf); Ovalocytes SLIGHT = 2-5 cells (100X) (0-1/hpf); Schistocytes SLIGHT = 2-5 cells (100X) (0-1/hpf); Target Cells SLIGHT = 2-5 cells (100X) (0-1/hpf)
[2023-06-13 05:48] LABS: Crenated RBC SLIGHT = 1-5 cells (100X) (None Seen)
[2023-06-13 05:50] LABS: Platelet Adequacy Comment Appears Decreased
[2023-06-13 06:00] LABS: CRP (Inflammatory) 9.86 mg/dL (= or < 0.5); Magnesium 1.7 mg/dL (1.6-2.6)
[2023-06-13 06:09] LABS: Anion Gap 12 mmol/L (10-20); BUN (Urea Nitrogen) 18 mg/dL (8.4-25.7); Calc. Creatinine Clearance 110 mL/min (70-130); Calcium 7.9 mg/dL (7.8-10.44); Carbon Dioxide 16 mmol/L (23-31); Chloride 109 mmol/L (98-107); Estimated GFR 93; Glucose 104 mg/dL (83-110); Potassium 3.5 mmol/L (3.5-5.1); Sodium 133 mmol/L (136-145)
[2023-06-13 06:31] LABS: Critical Call Chemistry NUR.RF@0630; Phosphorus 1.5 mg/dL (2.3-4.7)
[2023-06-13] MEDS ORDERED: Potassium Phosphate 15 MMOL in Sodium Chloride 0.9% 250 ML 250 ML IVPB SCH (07:00)
[2023-06-13] MEDS: predniSONE 20 MG TAB PO SCH (08:46)
[2023-06-13] MEDS: Allopurinol 100 MG TAB PO SCH (08:47)
[2023-06-13] MEDS: Apixaban 5 MG TAB PO SCH ×2 (08:47→21:46)
[2023-06-13] MEDS: Multivitamin W/ Minerals 1 TAB PO SCH (08:47)
[2023-06-13] MEDS: Brimonidine Tartrate 0.2% Ophth Soln 5 ml Bottle EA EYE SCH ×2 (08:49→21:50)
[2023-06-13] MEDS: guaiFENesin/DM ER PO SCH ×2 (08:50→21:49)
[2023-06-13] MEDS: Timolol 0.5% Ophth Soln 5 ml Bottle EA EYE SCH ×2 (08:51→21:58)
[2023-06-13] MEDS: valACYclovir 500 MG TAB PO SCH ×2 (08:52→21:58)
[2023-06-13] MEDS: Ibuprofen 200 MG TAB PO PRN (11:12)
[2023-06-13] MEDS: guaiFENesin/Codeine Phosphate 100 mg/10 mg 5 ml UD Cup PO PRN ×2 (11:12→23:59)
[2023-06-13] MEDS ORDERED: Potassium Chloride 10 MEQ in Dextrose 5 % And 0.9 % NaCl 1,000 ML IV SCH (11:30)
[2023-06-13] MEDS ORDERED: PHOS-NAK 1 PKT PACK PO SCH (12:00)
[2023-06-13] MEDS: Lorazepam 0.5 MG TAB PO PRN (14:15)
[2023-06-13] MEDS: Folic Acid 1 MG TAB PO SCH (21:46)
[2023-06-13] MEDS: Tamsulosin HCl 0.4 MG CAP PO SCH (21:46)
[2023-06-13] MEDS: Cyanocobalamin (Vitamin B-12) 1,000 MCG TAB PO SCH (21:48)
[2023-06-13] MEDS: Rosuvastatin 20 MG TAB PO SCH (21:48)
[2023-06-13] MEDS: tiZANidine HCl 4 MG TAB PO PRN (21:48)
[2023-06-13] MEDS: Melatonin 3 MG TAB PO SCH (21:49)
[2023-06-13] MEDS: Latanoprost 0.005% Ophth Soln 2.5 ml Bottle L EYE SCH (21:50)
[2023-06-14] MEDS: LevoFLOXacin 750 mg/D5W 750 MG in Premix 1 BAG IVPB SCH
[2023-06-14] MEDS: Cefepime 2 GM in Sodium Chloride 0.9% 100 ML IVPB SCH ×3 (01:21→18:21)
[2023-06-14] MEDS: Lorazepam 0.5 MG TAB PO PRN ×2 (01:38→15:52)
[2023-06-14] MEDS: guaiFENesin/Codeine Phosphate 100 mg/10 mg 5 ml UD Cup PO PRN (01:38)
[2023-06-14] MEDS: Ipratropium/Albuterol 3 ML NEB NEB SCH ×6 (03:13→22:30)
[2023-06-14 04:09] LABS: Anion Gap 12 mmol/L (10-20); BUN (Urea Nitrogen) 18 mg/dL (8.4-25.7); CRP (Inflammatory) 10.95 mg/dL (= or < 0.5); Calc. Creatinine Clearance 103 mL/min (70-130); Calcium 7.8 mg/dL (7.8-10.44); Carbon Dioxide 16 mmol/L (23-31); Chloride 111 mmol/L (98-107); Estimated GFR 91; Glucose 111 mg/dL (83-110); Magnesium 1.8 mg/dL (1.6-2.6); Potassium 3.8 mmol/L (3.5-5.1); Sodium 135 mmol/L (136-145)
[2023-06-14 04:27] LABS: Critical Call Chemistry NUR.RAF @ 0425; Phosphorus 1.5 mg/dL (2.3-4.7)
[2023-06-14 05:06] LABS: Hemoglobin 10.6 g/dL (13.5-17.5); Mean Corpuscular HGB CONC 35.3 g/dL (32.0-36.0); Mean Corpuscular Hemoglobin 34.2 pg (27.0-33.0); Mean Corpuscular Volume 96.8 fl (81.2-95.1); Mean Platelet Volume 13.5 fl (7.4-10.4); Platelet Count 91 10x3/uL (150-450); RBC Distribution Width 20.8 % (11.5-14.5); White Blood Cell (WBC) Count 9.5 10x3/uL (3.5-10.5)
[2023-06-14 05:07] LABS: MDiff Complete? YES
[2023-06-14] MEDS ORDERED: Potassium Phosphate 30 MMOL in Sodium Chloride 0.9% 250 ML 250 ML IVPB SCH ×2 (06:00→06:30)
[2023-06-14 06:38] LABS: Band 8 % (5-11); Lymphocytes 3 % (21-51); Neutrophil 89 % (42-75)
[2023-06-14 06:40] LABS: Anisocytosis SLIGHT = 6-15 cells (100X) (0-5/hpf); Microcytosis SLIGHT = 6-15 cells (100X) (0-5/hpf)
[2023-06-14 06:41] LABS: Crenated RBC SLIGHT = 1-5 cells (100X) (None Seen); Giant Platelets SLIGHT HPF (0-5); Macrocytosis SLIGHT = 6-15 cells (100X) (0-5/hpf); Platelet Adequacy Comment Appears Decreased; Schistocytes SLIGHT = 2-5 cells (100X) (0-1/hpf)
[2023-06-14] MEDS: Acetaminophen 325 MG TAB PO PRN (08:29)
[2023-06-14] MEDS: guaiFENesin/DM ER PO SCH ×2 (08:29→21:49)
[2023-06-14] MEDS: Benzonatate 100 MG CAP PO PRN (08:29)
[2023-06-14] MEDS: PHOS-NAK 1 PKT PACK PO SCH (08:30)
[2023-06-14] MEDS: Apixaban 5 MG TAB PO SCH ×2 (08:30→21:50)
[2023-06-14] MEDS: Allopurinol 100 MG TAB PO SCH (08:30)
[2023-06-14] MEDS: predniSONE 20 MG TAB PO SCH (08:30)
[2023-06-14] MEDS: Brimonidine Tartrate 0.2% Ophth Soln 5 ml Bottle EA EYE SCH ×2 (08:31→21:51)
[2023-06-14] MEDS: Timolol 0.5% Ophth Soln 5 ml Bottle EA EYE SCH ×2 (08:31→21:51)
[2023-06-14] MEDS ORDERED: dilTIAZem 125 MG in Sodium Chloride 0.9% 100 ML IVPB SCH (08:45)
[2023-06-14] MEDS: Multivitamin W/ Minerals 1 TAB PO SCH (08:52)
[2023-06-14] MEDS: valACYclovir 500 MG TAB PO SCH ×2 (08:59→21:50)
[2023-06-14] MEDS ORDERED: VANCOMYCIN 1.75 GM/350 ML BAG 1.75 GM in Premix 1 BAG IVPB SCH (09:00)
[2023-06-14] MEDS ORDERED: Micafungin 100 MG in Sodium Chloride 0.9% 100 ML IVPB SCH (11:00)
[2023-06-14] MEDS: HYDROcodone/Acetaminophen 10/325 mg Tablet PO PRN (11:40)
[2023-06-14] MEDS: traMADol HCl 50 MG TAB PO PRN ×2 (15:52→21:49)
[2023-06-14 16:08] LABS: Actual Bicarbonate (HCO3a) 18.2 mEq/L (22-28); Analyzer IN Cardio CS ICU; Base Excess (BEa) -4.8 mEq/L (-2.0 to +3.0); CO2 Tension 27.3 mmHg (35.0-45.0); Calcium, Ionized (arterial) 1.15 mmol/L (1.12-1.30); Carboxyhemoglobin (COHb) 0.3 gm% (0.0-3.0); Hematocrit-ABG 31 % (42.0-52.0); Hemoglobin (Hb) 10.5 g/dL (14.0-18.0); O2 Tension (PaO2), arterial 50.9 mmHg (> 70.0); Potassium - ABG Lab 3.86 mmol/L (3.70-5.30); Puncture Site RRA; pH, Arterial 7.442 (7.35-7.45)
[2023-06-14 16:10] LABS: ALV-art Gradient 342.775 mmHg (0-20)
[2023-06-14] MEDS: Rosuvastatin 20 MG TAB PO SCH (21:48)
[2023-06-14] MEDS: Furosemide 40 MG (4 mL) VIAL SLOW IVP SCH (21:48)
[2023-06-14] MEDS: Tamsulosin HCl 0.4 MG CAP PO SCH (21:49)
[2023-06-14] MEDS: Melatonin 3 MG TAB PO SCH (21:49)
[2023-06-14] MEDS: Vancomycin 1 GM in Sodium Chloride 0.9% 250 ML 250 ML IVPB SCH (21:50)
[2023-06-14] MEDS: Cyanocobalamin (Vitamin B-12) 1,000 MCG TAB PO SCH (21:50)
[2023-06-14] MEDS: Folic Acid 1 MG TAB PO SCH (21:50)
[2023-06-14] MEDS: Latanoprost 0.005% Ophth Soln 2.5 ml Bottle L EYE SCH (21:51)
[2023-06-15] MEDS: Cefepime 2 GM in Sodium Chloride 0.9% 100 ML IVPB SCH ×4 (02:04→21:38)
[2023-06-15] MEDS: Ipratropium/Albuterol 3 ML NEB NEB SCH ×6 (02:34→22:39)
[2023-06-15] MEDS: HYDROcodone/Acetaminophen 10/325 mg Tablet PO PRN ×4 (03:32→22:15)
[2023-06-15 03:41] LABS: Actual Bicarbonate (HCO3a) 17.9 mEq/L (22-28); Analyzer IN Cardio CS ICU; CO2 Tension 27.2 mmHg (35.0-45.0); Calcium, Ionized (arterial) 1.14 mmol/L (1.12-1.30); Carboxyhemoglobin (COHb) 0.3 gm% (0.0-3.0); Critical Notified By: Udy, RRT; Hematocrit-ABG 33 % (42.0-52.0); Hemoglobin (Hb) 11.3 g/dL (14.0-18.0); O2 Tension (PaO2), arterial 56.9 mmHg (> 70.0); Potassium - ABG Lab 3.85 mmol/L (3.70-5.30); Puncture Site RRA; RapidComm Collect By Udy, RRT; pH, Arterial 7.437 (7.35-7.45)
[2023-06-15 04:40] LABS: Anion Gap 14 mmol/L (10-20); BUN (Urea Nitrogen) 16 mg/dL (8.4-25.7); Calc. Creatinine Clearance 108 mL/min (70-130); Calcium 7.4 mg/dL (7.8-10.44); Carbon Dioxide 17 mmol/L (23-31); Chloride 108 mmol/L (98-107); Estimated GFR 92; Glucose 84 mg/dL (83-110); Magnesium 1.7 mg/dL (1.6-2.6); Sodium 135 mmol/L (136-145)
[2023-06-15 04:46] LABS: Hematocrit 27.6 % (38.8-50.0); Hemoglobin 9.7 g/dL (13.5-17.5); MDiff Complete? YES; Mean Corpuscular HGB CONC 35.1 g/dL (32.0-36.0); Mean Corpuscular Hemoglobin 34.3 pg (27.0-33.0); Mean Corpuscular Volume 97.5 fl (81.2-95.1); Mean Platelet Volume 13.5 fl (7.4-10.4); Platelet Count 117 10x3/uL (150-450); RBC Distribution Width 20.6 % (11.5-14.5); Red Blood Cell (RBC) Count 2.83 10x6/uL (4.32-5.72); White Blood Cell (WBC) Count 6.7 10x3/uL (3.5-10.5)
[2023-06-15 06:35] LABS: Anisocytosis SLIGHT = 6-15 cells (100X) (0-5/hpf); Hypochromia SLIGHT = 6-15 cells (100X) (0-5/hpf); Macrocytosis SLIGHT = 6-15 cells (100X) (0-5/hpf); Microcytosis SLIGHT = 6-15 cells (100X) (0-5/hpf); Target Cells SLIGHT = 2-5 cells (100X) (0-1/hpf)
[2023-06-15 06:36] LABS: Platelet Adequacy Comment Appears Decreased; Schistocytes SLIGHT = 2-5 cells (100X) (0-1/hpf)
[2023-06-15 06:45] LABS: Band 2 % (5-11); Lymphocytes 2 % (21-51); Neutrophil 96 % (42-75); Nucleated RBC (Manual Ct) 2 % (0)
[2023-06-15] MEDS: Allopurinol 100 MG TAB PO SCH (08:00)
[2023-06-15] MEDS: Apixaban 5 MG TAB PO SCH ×2 (08:00→21:48)
[2023-06-15] MEDS: predniSONE 20 MG TAB PO SCH (08:00)
[2023-06-15] MEDS: Brimonidine Tartrate 0.2% Ophth Soln 5 ml Bottle EA EYE SCH ×2 (08:01→21:40)
[2023-06-15] MEDS: Furosemide 40 MG (4 mL) VIAL SLOW IVP SCH ×2 (08:01→21:39)
[2023-06-15] MEDS: guaiFENesin/DM ER PO SCH ×2 (08:02→21:39)
[2023-06-15] MEDS: PHOS-NAK 1 PKT PACK PO SCH (08:03)
[2023-06-15] MEDS: Multivitamin W/ Minerals 1 TAB PO SCH (08:03)
[2023-06-15] MEDS: valACYclovir 500 MG TAB PO SCH ×2 (08:04→21:48)
[2023-06-15] MEDS: Timolol 0.5% Ophth Soln 5 ml Bottle EA EYE SCH ×2 (08:04→21:40)
[2023-06-15] MEDS: traMADol HCl 50 MG TAB PO PRN ×2 (08:04→13:29)
[2023-06-15] MEDS: Lorazepam 0.5 MG TAB PO PRN (10:08)
[2023-06-15] MEDS: Vancomycin 1 GM in Sodium Chloride 0.9% 250 ML 250 ML IVPB SCH ×2 (10:23→21:39)
[2023-06-15] MEDS ORDERED: ALPRAZolam 0.25 MG TAB PO PRN (10:24)
[2023-06-15] MEDS ORDERED: Escitalopram Oxalate 10 mg Tablet PO SCH (11:00)
[2023-06-15] MEDS: Benzonatate 100 MG CAP PO PRN ×2 (16:52→22:16)
[2023-06-15] MEDS: Benzocaine/Menthol 1 LOZ LOZ PO PRN (16:52)
[2023-06-15] MEDS: guaiFENesin/Codeine Phosphate 100 mg/10 mg 5 ml UD Cup PO PRN (16:56)
[2023-06-15] MEDS: Folic Acid 1 MG TAB PO SCH (21:37)
[2023-06-15] MEDS: Tamsulosin HCl 0.4 MG CAP PO SCH (21:37)
[2023-06-15] MEDS: Rosuvastatin 20 MG TAB PO SCH (21:37)
[2023-06-15] MEDS: Cyanocobalamin (Vitamin B-12) 1,000 MCG TAB PO SCH (21:37)
[2023-06-15] MEDS: Latanoprost 0.005% Ophth Soln 2.5 ml Bottle L EYE SCH (21:40)
[2023-06-15] MEDS: Melatonin 3 MG TAB PO SCH (21:46)
[2023-06-15] MEDS: Acetaminophen 325 MG TAB PO PRN (21:52)
[2023-06-15 22:48] LABS: Vancomycin, Trough 16.9 ug/mL
[2023-06-16] MEDS: Ipratropium/Albuterol 3 ML NEB NEB SCH ×6 (02:12→22:55)
[2023-06-16] MEDS: Cefepime 2 GM in Sodium Chloride 0.9% 100 ML IVPB SCH ×3 (04:38→19:38)
[2023-06-16] MEDS: predniSONE 20 MG TAB PO SCH (08:06)
[2023-06-16] MEDS: Apixaban 5 MG TAB PO SCH ×2 (08:07→20:39)
[2023-06-16] MEDS: Allopurinol 100 MG TAB PO SCH (08:07)
[2023-06-16] MEDS: Brimonidine Tartrate 0.2% Ophth Soln 5 ml Bottle EA EYE SCH ×2 (08:07→20:38)
[2023-06-16] MEDS: Escitalopram Oxalate 10 mg Tablet PO SCH (08:08)
[2023-06-16] MEDS: guaiFENesin/DM ER PO SCH ×2 (08:08→20:39)
[2023-06-16] MEDS: Furosemide 40 MG (4 mL) VIAL SLOW IVP SCH ×2 (08:08→20:37)
[2023-06-16] MEDS: Multivitamin W/ Minerals 1 TAB PO SCH (08:08)
[2023-06-16] MEDS: PHOS-NAK 1 PKT PACK PO SCH (08:09)
[2023-06-16] MEDS: Timolol 0.5% Ophth Soln 5 ml Bottle EA EYE SCH ×2 (08:09→20:38)
[2023-06-16] MEDS: valACYclovir 500 MG TAB PO SCH ×2 (08:10→20:39)
[2023-06-16] MEDS: Acetaminophen 325 MG TAB PO PRN (08:10)
[2023-06-16] MEDS: HYDROcodone/Acetaminophen 10/325 mg Tablet PO PRN ×3 (08:11→19:37)
[2023-06-16] MEDS: Vancomycin 1 GM in Sodium Chloride 0.9% 250 ML 250 ML IVPB SCH ×2 (10:40→22:41)
[2023-06-16 13:51] LABS: Hematocrit 28.3 % (38.8-50.0); Mean Corpuscular HGB CONC 35.3 g/dL (32.0-36.0); Mean Corpuscular Hemoglobin 34.1 pg (27.0-33.0); Mean Corpuscular Volume 96.6 fl (81.2-95.1); Mean Platelet Volume 12.3 fl (7.4-10.4); Platelet Count 112 10x3/uL (150-450); RBC Distribution Width 20.2 % (11.5-14.5); Red Blood Cell (RBC) Count 2.93 10x6/uL (4.32-5.72); White Blood Cell (WBC) Count 7.5 10x3/uL (3.5-10.5)
[2023-06-16 13:54] LABS: Lactic Acid 0.9 mmol/L (0.5-2.2)
[2023-06-16 14:01] LABS: ALT (SGPT) 105 U/L (8-55); AST (SGOT) 137 U/L (5-34); Albumin 2.9 g/dL (3.4-4.8); Alkaline Phosphatase 118 U/L (40-110); Anion Gap 15 mmol/L (10-20); BUN (Urea Nitrogen) 21 mg/dL (8.4-25.7); Bilirubin, Total 0.8 mg/dL (0.2-1.2); Calc. Creatinine Clearance 97 mL/min (70-130); Carbon Dioxide 17 mmol/L (23-31); Chloride 107 mmol/L (98-107); Estimated GFR 89; Globulin 3.3 g/dL (2.4-3.5); Glucose 110 mg/dL (83-110); Potassium 3.9 mmol/L (3.5-5.1); Protein, Total 6.2 g/dL (5.8-8.1); Sodium 135 mmol/L (136-145)
[2023-06-16 14:22] LABS: Lymphocytes 3 % (21-51); Monocytes 1 % (0-10); Nucleated RBC (Manual Ct) 7 % (0)
[2023-06-16 14:25] LABS: Band 5 % (5-11)
[2023-06-16 14:27] LABS: Anisocytosis SLIGHT = 6-15 cells (100X) (0-5/hpf); Microcytosis SLIGHT = 6-15 cells (100X) (0-5/hpf); Neutrophil 91 % (42-75); Poikilocytosis SLIGHT = 6-15 cells (100X) (0-5/hpf)
[2023-06-16 14:28] LABS: Burr Cells SLIGHT = 2-5 cells (100X) (0-1/hpf); Crenated RBC SLIGHT = 1-5 cells (100X) (None Seen); Schistocytes SLIGHT = 2-5 cells (100X) (0-1/hpf)
[2023-06-16 14:29] LABS: Ovalocytes SLIGHT = 2-5 cells (100X) (0-1/hpf); Spherocytes SLIGHT = 1-5 cells (100X) (None Seen)
[2023-06-16 14:31] LABS: Target Cells SLIGHT = 2-5 cells (100X) (0-1/hpf)
[2023-06-16 14:32] LABS: Polychromasia SLIGHT = 2-3 cells (100X) (0-2/hpf)
[2023-06-16 14:33] LABS: Dohle Bodies SLIGHT; Howell Jolly Bodies SLIGHT = 1-2 cells (100X) (None Seen); Hypersegmented Neutrophil SLIGHT; Large Platelets MODERATE (None Seen); Toxic Granulation MODERATE
[2023-06-16 14:34] LABS: Giant Platelets SLIGHT HPF (0-5); Platelet Adequacy Comment Appears Decreased
[2023-06-16 14:37] LABS: MDiff Complete? YES
[2023-06-16] MEDS: Benzonatate 100 MG CAP PO PRN (19:38)
[2023-06-16] MEDS: Latanoprost 0.005% Ophth Soln 2.5 ml Bottle L EYE SCH (20:37)
[2023-06-16] MEDS: Cyanocobalamin (Vitamin B-12) 1,000 MCG TAB PO SCH (20:39)
[2023-06-16] MEDS: Folic Acid 1 MG TAB PO SCH (20:39)
[2023-06-16] MEDS: Rosuvastatin 20 MG TAB PO SCH (20:39)
[2023-06-16] MEDS: Tamsulosin HCl 0.4 MG CAP PO SCH (20:39)
[2023-06-16] MEDS: Melatonin 3 MG TAB PO SCH (20:39)
[2023-06-17] MEDS: guaiFENesin/Codeine Phosphate 100 mg/10 mg 5 ml UD Cup PO PRN (01:21)
[2023-06-17] MEDS: Acetaminophen 325 MG TAB PO PRN ×2 (01:23→12:30)
[2023-06-17] MEDS: Ipratropium/Albuterol 3 ML NEB NEB SCH ×6 (03:00→23:06)
[2023-06-17 03:41] LABS: #Monocytes 0.1 10x3/uL (0.0-1.1); #Neutrophils 6.5 10x3/uL (1.5-8.4); %Basophils 0.1 % (0.0-2.0); %Lymphocytes 2.4 % (18.0-47.0); %Monocytes 1.9 % (0.0-10.0); %Neutrophils 95.2 % (40.0-75.0); Hematocrit 28.3 % (38.8-50.0); Hemoglobin 10.1 g/dL (13.5-17.5); Mean Corpuscular HGB CONC 36.1 g/dL (32.0-36.0); Mean Corpuscular Hemoglobin 34.7 pg (27.0-33.0); Mean Corpuscular Volume 96.2 fl (81.2-95.1); Mean Platelet Volume 13.9 fl (7.4-10.4); Platelet Count 105 10x3/uL (150-450); RBC Distribution Width 20.2 % (11.5-14.5); Red Blood Cell (RBC) Count 2.95 10x6/uL (4.32-5.72); White Blood Cell (WBC) Count 6.8 10x3/uL (3.5-10.5)
[2023-06-17 03:47] LABS: Anion Gap 17 mmol/L (10-20); BUN (Urea Nitrogen) 23 mg/dL (8.4-25.7); Calc. Creatinine Clearance 96 mL/min (70-130); Carbon Dioxide 15 mmol/L (23-31); Chloride 107 mmol/L (98-107); Estimated GFR 89; Glucose 108 mg/dL (83-110); Potassium 3.6 mmol/L (3.5-5.1); Sodium 135 mmol/L (136-145)
[2023-06-17] MEDS: Cefepime 2 GM in Sodium Chloride 0.9% 100 ML IVPB SCH ×3 (04:18→20:20)
[2023-06-17] MEDS: HYDROcodone/Acetaminophen 10/325 mg Tablet PO PRN ×3 (04:18→20:20)
[2023-06-17 04:43] LABS: Crenated RBC MODERATE= 6-15 cells (100X) (None Seen); Ovalocytes MODERATE= 6-15 cells (100X) (0-1/hpf); Platelet Adequacy Comment Appears Decreased; Target Cells SLIGHT = 2-5 cells (100X) (0-1/hpf)
[2023-06-17 09:36] LABS: Vancomycin, Trough 22.5 ug/mL
[2023-06-17] MEDS ORDERED: Vancomycin HCl 750 MG in Sodium Chloride 0.9% 250 ML 250 ML IVPB SCH (10:00)
[2023-06-17] MEDS: valACYclovir 500 MG TAB PO SCH ×2 (10:24→20:21)
[2023-06-17] MEDS: Timolol 0.5% Ophth Soln 5 ml Bottle EA EYE SCH ×2 (10:25→20:23)
[2023-06-17] MEDS: Brimonidine Tartrate 0.2% Ophth Soln 5 ml Bottle EA EYE SCH ×2 (10:25→20:21)
[2023-06-17] MEDS: Vancomycin 1 GM in Sodium Chloride 0.9% 250 ML 250 ML IVPB SCH (10:27)
[2023-06-17] MEDS: Escitalopram Oxalate 10 mg Tablet PO SCH (10:28)
[2023-06-17] MEDS: Furosemide 40 MG (4 mL) VIAL SLOW IVP SCH ×2 (10:28→20:22)
[2023-06-17] MEDS: Multivitamin W/ Minerals 1 TAB PO SCH (10:29)
[2023-06-17] MEDS: PHOS-NAK 1 PKT PACK PO SCH (10:29)
[2023-06-17] MEDS: Allopurinol 100 MG TAB PO SCH (10:29)
[2023-06-17] MEDS: Apixaban 5 MG TAB PO SCH ×2 (10:29→20:20)
[2023-06-17] MEDS: guaiFENesin/DM ER PO SCH ×2 (10:40→20:20)
[2023-06-17] MEDS: predniSONE 20 MG TAB PO SCH (10:48)
[2023-06-17] MEDS: Cyanocobalamin (Vitamin B-12) 1,000 MCG TAB PO SCH (20:20)
[2023-06-17] MEDS: Folic Acid 1 MG TAB PO SCH (20:20)
[2023-06-17] MEDS: Tamsulosin HCl 0.4 MG CAP PO SCH (20:21)
[2023-06-17] MEDS: Melatonin 3 MG TAB PO SCH (20:21)
[2023-06-17] MEDS: Latanoprost 0.005% Ophth Soln 2.5 ml Bottle L EYE SCH (20:21)
[2023-06-17] MEDS: Rosuvastatin 20 MG TAB PO SCH (20:21)
[2023-06-17] MEDS: Vancomycin HCl 750 MG in Sodium Chloride 0.9% 250 ML 250 ML IVPB SCH (21:30)
[2023-06-18] MEDS: Ipratropium/Albuterol 3 ML NEB NEB SCH ×6 (03:29→22:42)
[2023-06-18] MEDS: Cefepime 2 GM in Sodium Chloride 0.9% 100 ML IVPB SCH ×3 (05:16→19:52)
[2023-06-18] MEDS: HYDROcodone/Acetaminophen 10/325 mg Tablet PO PRN ×3 (05:16→21:36)
[2023-06-18 07:57] LABS: Lavender RECEIVED; Red RECEIVED
[2023-06-18] MEDS: PHOS-NAK 1 PKT PACK PO SCH (08:01)
[2023-06-18] MEDS: Furosemide 40 MG (4 mL) VIAL SLOW IVP SCH ×2 (08:01→21:37)
[2023-06-18] MEDS: predniSONE 20 MG TAB PO SCH (08:02)
[2023-06-18] MEDS: Allopurinol 100 MG TAB PO SCH (08:02)
[2023-06-18] MEDS: Escitalopram Oxalate 10 mg Tablet PO SCH (08:03)
[2023-06-18] MEDS: Apixaban 5 MG TAB PO SCH ×2 (08:03→21:36)
[2023-06-18] MEDS: Multivitamin W/ Minerals 1 TAB PO SCH (08:03)
[2023-06-18] MEDS: guaiFENesin/DM ER PO SCH ×2 (08:06→21:37)
[2023-06-18] MEDS: valACYclovir 500 MG TAB PO SCH ×2 (08:07→21:37)
[2023-06-18] MEDS: Brimonidine Tartrate 0.2% Ophth Soln 5 ml Bottle EA EYE SCH ×2 (08:08→21:37)
[2023-06-18] MEDS: Timolol 0.5% Ophth Soln 5 ml Bottle EA EYE SCH ×2 (08:41→21:39)
[2023-06-18] MEDS: Vancomycin HCl 750 MG in Sodium Chloride 0.9% 250 ML 250 ML IVPB SCH ×2 (09:31→21:37)
[2023-06-18] MEDS: guaiFENesin/Codeine Phosphate 100 mg/10 mg 5 ml UD Cup PO PRN (19:52)
[2023-06-18 21:32] LABS: Vancomycin, Trough 21.4 ug/mL
[2023-06-18] MEDS: Melatonin 3 MG TAB PO SCH (21:35)
[2023-06-18] MEDS: Rosuvastatin 20 MG TAB PO SCH (21:36)
[2023-06-18] MEDS: Folic Acid 1 MG TAB PO SCH (21:36)
[2023-06-18] MEDS: Tamsulosin HCl 0.4 MG CAP PO SCH (21:37)
[2023-06-18] MEDS: Cyanocobalamin (Vitamin B-12) 1,000 MCG TAB PO SCH (21:37)
[2023-06-18] MEDS: Latanoprost 0.005% Ophth Soln 2.5 ml Bottle L EYE SCH (21:37)
[2023-06-19] MEDS: Ipratropium/Albuterol 3 ML NEB NEB SCH ×6 (02:07→23:40)
[2023-06-19] MEDS: Benzonatate 100 MG CAP PO PRN ×2 (02:35→20:23)
[2023-06-19] MEDS: Cefepime 2 GM in Sodium Chloride 0.9% 100 ML IVPB SCH ×3 (04:21→20:24)
[2023-06-19] MEDS: Ondansetron PF 4 MG/2 ML Vial IVP PRN (05:48)
[2023-06-19] MEDS: HYDROcodone/Acetaminophen 10/325 mg Tablet PO PRN ×2 (05:56→20:19)
[2023-06-19] MEDS: PHOS-NAK 1 PKT PACK PO SCH (08:44)
[2023-06-19] MEDS: Furosemide 40 MG (4 mL) VIAL SLOW IVP SCH ×2 (08:44→20:21)
[2023-06-19] MEDS: predniSONE 20 MG TAB PO SCH (08:44)
[2023-06-19] MEDS: Multivitamin W/ Minerals 1 TAB PO SCH (08:45)
[2023-06-19] MEDS: Escitalopram Oxalate 10 mg Tablet PO SCH (08:45)
[2023-06-19] MEDS: Allopurinol 100 MG TAB PO SCH (08:45)
[2023-06-19] MEDS: Apixaban 5 MG TAB PO SCH ×2 (08:45→20:24)
[2023-06-19] MEDS: guaiFENesin/DM ER PO SCH ×2 (08:49→20:48)
[2023-06-19] MEDS: valACYclovir 500 MG TAB PO SCH ×2 (08:49→20:24)
[2023-06-19] MEDS: Brimonidine Tartrate 0.2% Ophth Soln 5 ml Bottle EA EYE SCH ×2 (08:49→20:25)
[2023-06-19] MEDS: Timolol 0.5% Ophth Soln 5 ml Bottle EA EYE SCH ×2 (08:50→20:27)
[2023-06-19 09:39] LABS: ALT (SGPT) 130 U/L (8-55); AST (SGOT) 192 U/L (5-34); Albumin 2.8 g/dL (3.4-4.8); Alkaline Phosphatase 117 U/L (40-110); Anion Gap 14 mmol/L (10-20); BUN (Urea Nitrogen) 33 mg/dL (8.4-25.7); Bilirubin, Total 0.8 mg/dL (0.2-1.2); Calc. Creatinine Clearance 81 mL/min (70-130); Calcium 7.6 mg/dL (7.8-10.44); Carbon Dioxide 18 mmol/L (23-31); Chloride 109 mmol/L (98-107); Estimated GFR 74; Globulin 3.3 g/dL (2.4-3.5); Glucose 160 mg/dL (83-110); Protein, Total 6.1 g/dL (5.8-8.1); Sodium 137 mmol/L (136-145)
[2023-06-19] MEDS: Vancomycin HCl 750 MG in Sodium Chloride 0.9% 250 ML 250 ML IVPB SCH ×2 (10:16→22:43)
[2023-06-19 11:43] LABS: Eosinophils 1 % (0-10); Lymphocytes 3 % (21-51); Monocytes 1 % (0-10); Neutrophil 95 % (42-75)
[2023-06-19 11:46] LABS: MDiff Complete? YES
[2023-06-19 11:47] LABS: Platelet Adequacy Comment Appears Decreased
[2023-06-19 12:22] LABS: #Monocytes 0.2 10x3/uL (0.0-1.1); #Neutrophils 6.4 10x3/uL (1.5-8.4); %Basophils 0.1 % (0.0-2.0); %Lymphocytes 2.8 % (18.0-47.0); %Monocytes 2.4 % (0.0-10.0); %Neutrophils 94.3 % (40.0-75.0); Anisocytosis SLIGHT = 6-15 cells (100X) (0-5/hpf); Hematocrit 28.4 % (38.8-50.0); Hemoglobin 10.2 g/dL (13.5-17.5); Mean Corpuscular HGB CONC 35.9 g/dL (32.0-36.0); Mean Corpuscular Hemoglobin 34.5 pg (27.0-33.0); Mean Corpuscular Volume 95.9 fl (81.2-95.1); Platelet Count 94 10x3/uL (150-450); Red Blood Cell (RBC) Count 2.96 10x6/uL (4.32-5.72); White Blood Cell (WBC) Count 6.8 10x3/uL (3.5-10.5)
[2023-06-19] MEDS: Rosuvastatin 20 MG TAB PO SCH (20:23)
[2023-06-19] MEDS: Cyanocobalamin (Vitamin B-12) 1,000 MCG TAB PO SCH (20:23)
[2023-06-19] MEDS: Tamsulosin HCl 0.4 MG CAP PO SCH (20:23)
[2023-06-19] MEDS: Folic Acid 1 MG TAB PO SCH (20:24)
[2023-06-19] MEDS: Latanoprost 0.005% Ophth Soln 2.5 ml Bottle L EYE SCH (20:26)
[2023-06-19] MEDS: guaiFENesin/Codeine Phosphate 100 mg/10 mg 5 ml UD Cup PO PRN (20:26)
[2023-06-19] MEDS: Melatonin 3 MG TAB PO SCH (20:48)
[2023-06-19 21:55] LABS: Vancomycin, Trough 21.9 ug/mL
[2023-06-19] MEDS ORDERED: Piperacillin/Tazobactam 4.5 GM in Sodium Chloride 0.9% 100 ML IVPB SCH (23:15)
[2023-06-19] MEDS ORDERED: Piperacillin/Tazobactam 3.375 GM in Sodium Chloride 0.9% 100 ML IVPB SCH (23:59)
[2023-06-20] MEDS: Ipratropium/Albuterol 3 ML NEB NEB SCH ×6 (02:40→23:45)
[2023-06-20] MEDS: Vancomycin HCl 750 MG in Sodium Chloride 0.9% 250 ML 250 ML IVPB SCH ×2 (03:07→21:57)
[2023-06-20] MEDS: HYDROcodone/Acetaminophen 10/325 mg Tablet PO PRN ×3 (03:11→20:11)
[2023-06-20] MEDS: Piperacillin/Tazobactam 3.375 GM in Sodium Chloride 0.9% 100 ML IVPB SCH ×3 (03:46→20:13)
[2023-06-20] MEDS: Escitalopram Oxalate 10 mg Tablet PO SCH (08:13)
[2023-06-20] MEDS: Brimonidine Tartrate 0.2% Ophth Soln 5 ml Bottle EA EYE SCH ×2 (08:13→20:15)
[2023-06-20] MEDS: Allopurinol 100 MG TAB PO SCH (08:13)
[2023-06-20] MEDS: Furosemide 40 MG (4 mL) VIAL SLOW IVP SCH ×2 (08:13→20:15)
[2023-06-20] MEDS: Apixaban 5 MG TAB PO SCH ×2 (08:14→20:15)
[2023-06-20] MEDS: PHOS-NAK 1 PKT PACK PO SCH (08:14)
[2023-06-20] MEDS: guaiFENesin/DM ER PO SCH ×2 (08:14→20:15)
[2023-06-20] MEDS: valACYclovir 500 MG TAB PO SCH ×2 (08:14→20:15)
[2023-06-20] MEDS: Multivitamin W/ Minerals 1 TAB PO SCH (08:14)
[2023-06-20] MEDS: Timolol 0.5% Ophth Soln 5 ml Bottle EA EYE SCH ×2 (08:14→20:24)
[2023-06-20] MEDS: predniSONE 20 MG TAB PO SCH (08:14)
[2023-06-20] MEDS: Lorazepam 0.5 MG TAB PO PRN (12:37)
[2023-06-20] MEDS: Melatonin 3 MG TAB PO SCH (20:15)
[2023-06-20] MEDS: Cyanocobalamin (Vitamin B-12) 1,000 MCG TAB PO SCH (20:15)
[2023-06-20] MEDS: Folic Acid 1 MG TAB PO SCH (20:15)
[2023-06-20] MEDS: Latanoprost 0.005% Ophth Soln 2.5 ml Bottle L EYE SCH (20:16)
[2023-06-20] MEDS: Rosuvastatin 20 MG TAB PO SCH (21:54)
[2023-06-20] MEDS: Tamsulosin HCl 0.4 MG CAP PO SCH (21:54)
[2023-06-20] MEDS: Budesonide 0.25 MG/2 ML NEB INH SCH (23:45)
[2023-06-21] MEDS ORDERED: Lactated Ringer's 500 ML IV SCH (00:15)
[2023-06-21] MEDS: Ipratropium/Albuterol 3 ML NEB NEB SCH ×6 (02:45→22:00)
[2023-06-21 03:21] LABS: #Monocytes 0.3 10x3/uL (0.0-1.1); %Basophils 0.3 % (0.0-2.0); %Lymphocytes 3.8 % (18.0-47.0); %Monocytes 4.4 % (0.0-10.0); %Neutrophils 90.7 % (40.0-75.0); Hematocrit 28.7 % (38.8-50.0); Hemoglobin 10.1 g/dL (13.5-17.5); Mean Corpuscular HGB CONC 35.2 g/dL (32.0-36.0); Mean Corpuscular Hemoglobin 34.4 pg (27.0-33.0); Mean Corpuscular Volume 97.6 fl (81.2-95.1); Platelet Count 80 10x3/uL (150-450); RBC Distribution Width 19.8 % (11.5-14.5); Red Blood Cell (RBC) Count 2.94 10x6/uL (4.32-5.72); White Blood Cell (WBC) Count 6.6 10x3/uL (3.5-10.5)
[2023-06-21 03:40] LABS: Anion Gap 16 mmol/L (10-20); BUN (Urea Nitrogen) 29 mg/dL (8.4-25.7); Calc. Creatinine Clearance 84 mL/min (70-130); Carbon Dioxide 19 mmol/L (23-31); Chloride 106 mmol/L (98-107); Estimated GFR 77; Glucose 101 mg/dL (83-110); Sodium 138 mmol/L (136-145)
[2023-06-21 03:41] LABS: Large Platelets SLIGHT (None Seen); Platelet Adequacy Comment Appears Decreased; RBC Morph Comment Within Normal Limits
[2023-06-21 03:51] LABS: Calcium 6.9 mg/dL (7.8-10.44); Critical Call Chemistry NUR.NC1 @0340
[2023-06-21] MEDS: Piperacillin/Tazobactam 3.375 GM in Sodium Chloride 0.9% 100 ML IVPB SCH ×3 (04:38→20:05)
[2023-06-21] MEDS: Potassium Chloride 20 MEQ TAB PO SCH ×2 (04:43→09:23)
[2023-06-21 04:50] LABS: Magnesium 1.9 mg/dL (1.6-2.6)
[2023-06-21] MEDS ORDERED: CALCIUM GLUC 1 GM/NS 50 ML 1 GM in Premix 1 BAG IVPB SCH (05:00)
[2023-06-21] MEDS ORDERED: Sterile Water 10 ML ONE (05:26)
[2023-06-21] MEDS: Budesonide 0.25 MG/2 ML NEB INH SCH ×2 (06:51→18:35)
[2023-06-21] MEDS: predniSONE 20 MG TAB PO SCH (09:23)
[2023-06-21] MEDS: Ibuprofen 200 MG TAB PO PRN (09:23)
[2023-06-21] MEDS: Escitalopram Oxalate 10 mg Tablet PO SCH (09:23)
[2023-06-21] MEDS: Apixaban 5 MG TAB PO SCH ×2 (09:24→21:54)
[2023-06-21] MEDS: Furosemide 40 MG (4 mL) VIAL SLOW IVP SCH ×2 (09:24→21:52)
[2023-06-21] MEDS: Brimonidine Tartrate 0.2% Ophth Soln 5 ml Bottle EA EYE SCH ×2 (09:24→21:53)
[2023-06-21] MEDS: Allopurinol 100 MG TAB PO SCH (09:24)
[2023-06-21] MEDS: Multivitamin W/ Minerals 1 TAB PO SCH (09:27)
[2023-06-21] MEDS: PHOS-NAK 1 PKT PACK PO SCH (09:27)
[2023-06-21] MEDS: guaiFENesin/DM ER PO SCH ×2 (09:27→21:53)
[2023-06-21] MEDS: valACYclovir 500 MG TAB PO SCH ×2 (09:27→21:53)
[2023-06-21] MEDS: Timolol 0.5% Ophth Soln 5 ml Bottle EA EYE SCH ×2 (09:28→21:49)
[2023-06-21] MEDS ORDERED: Bisacodyl 10 MG SUPP PR SCH (14:00)
[2023-06-21] MEDS: HYDROcodone/Acetaminophen 10/325 mg Tablet PO PRN ×2 (16:13→22:02)
[2023-06-21] MEDS: Vancomycin HCl 750 MG in Sodium Chloride 0.9% 250 ML 250 ML IVPB SCH (16:14)
[2023-06-21] MEDS: Cyanocobalamin (Vitamin B-12) 1,000 MCG TAB PO SCH (21:53)
[2023-06-21] MEDS: Melatonin 3 MG TAB PO SCH (21:53)
[2023-06-21] MEDS: Folic Acid 1 MG TAB PO SCH (21:53)
[2023-06-21] MEDS: Rosuvastatin 20 MG TAB PO SCH (21:53)
[2023-06-21] MEDS: Tamsulosin HCl 0.4 MG CAP PO SCH (21:53)
[2023-06-21] MEDS: Latanoprost 0.005% Ophth Soln 2.5 ml Bottle L EYE SCH (21:54)
[2023-06-21] MEDS: Polyethylene Glycol 3350 17 GM Packet PO PRN (22:02)
[2023-06-22] MEDS: guaiFENesin/Codeine Phosphate 100 mg/10 mg 5 ml UD Cup PO PRN ×3 (02:06→21:16)
[2023-06-22] MEDS ORDERED: Senokot 8.6 MG TAB PO SCH (02:15)
[2023-06-22] MEDS: Ipratropium/Albuterol 3 ML NEB NEB SCH ×6 (02:23→22:50)
[2023-06-22] MEDS: Piperacillin/Tazobactam 3.375 GM in Sodium Chloride 0.9% 100 ML IVPB SCH ×3 (03:53→21:15)
[2023-06-22 05:07] LABS: Hematocrit 29.8 % (38.8-50.0); Hemoglobin 10.8 g/dL (13.5-17.5); Mean Corpuscular HGB CONC 36.2 g/dL (32.0-36.0); Mean Corpuscular Hemoglobin 34.6 pg (27.0-33.0); Mean Corpuscular Volume 95.5 fl (81.2-95.1); Platelet Count 89 10x3/uL (150-450); RBC Distribution Width 19.9 % (11.5-14.5); Red Blood Cell (RBC) Count 3.12 10x6/uL (4.32-5.72); White Blood Cell (WBC) Count 7.5 10x3/uL (3.5-10.5)
[2023-06-22 05:08] LABS: MDiff Complete? YES
[2023-06-22 05:13] LABS: Anion Gap 17 mmol/L (10-20); BUN (Urea Nitrogen) 35 mg/dL (8.4-25.7); Calc. Creatinine Clearance 74 mL/min (70-130); Calcium 7.3 mg/dL (7.8-10.44); Carbon Dioxide 17 mmol/L (23-31); Chloride 106 mmol/L (98-107); Estimated GFR 66; Glucose 112 mg/dL (83-110); Potassium 4.1 mmol/L (3.5-5.1); Sodium 136 mmol/L (136-145)
[2023-06-22 05:28] LABS: Platelet Adequacy Comment Appears Decreased
[2023-06-22 05:29] LABS: RBC Morph Comment Within Normal Limits
[2023-06-22 05:32] LABS: Band 8 % (5-11); Eosinophils 1 % (0-10); Large Platelets SLIGHT (None Seen); Lymphocytes 7 % (21-51); Monocytes 7 % (0-10); Neutrophil 77 % (42-75); Nucleated RBC (Manual Ct) 2 % (0)
[2023-06-22] MEDS: Budesonide 0.25 MG/2 ML NEB INH SCH ×2 (07:24→19:40)
[2023-06-22] MEDS: Ibuprofen 200 MG TAB PO PRN (08:16)
[2023-06-22] MEDS: PHOS-NAK 1 PKT PACK PO SCH (08:17)
[2023-06-22] MEDS: valACYclovir 500 MG TAB PO SCH ×2 (08:17→21:21)
[2023-06-22] MEDS: Senokot S 8.6-50 MG TAB PO SCH ×2 (08:17→21:17)
[2023-06-22] MEDS: Allopurinol 100 MG TAB PO SCH (08:17)
[2023-06-22] MEDS: predniSONE 20 MG TAB PO SCH (08:17)
[2023-06-22] MEDS: Furosemide 40 MG (4 mL) VIAL SLOW IVP SCH ×2 (08:18→21:16)
[2023-06-22] MEDS: guaiFENesin/DM ER PO SCH (08:18)
[2023-06-22] MEDS: Apixaban 5 MG TAB PO SCH ×2 (08:18→21:16)
[2023-06-22] MEDS: Escitalopram Oxalate 10 mg Tablet PO SCH (08:18)
[2023-06-22] MEDS: Multivitamin W/ Minerals 1 TAB PO SCH (08:18)
[2023-06-22] MEDS: Brimonidine Tartrate 0.2% Ophth Soln 5 ml Bottle EA EYE SCH (08:18)
[2023-06-22] MEDS: Lorazepam 0.5 MG TAB PO PRN (08:18)
[2023-06-22] MEDS ORDERED: Vancomycin 1 GM in Sodium Chloride 0.9% 250 ML 250 ML IVPB SCH (10:00)
[2023-06-22] MEDS: Timolol 0.5% Ophth Soln 5 ml Bottle EA EYE SCH ×2 (21:12→21:13)
[2023-06-22] MEDS: Tamsulosin HCl 0.4 MG CAP PO SCH (21:15)
[2023-06-22] MEDS: Cyanocobalamin (Vitamin B-12) 1,000 MCG TAB PO SCH (21:16)
[2023-06-22] MEDS: Rosuvastatin 20 MG TAB PO SCH (21:16)
[2023-06-22] MEDS: Melatonin 3 MG TAB PO SCH (21:16)
[2023-06-22] MEDS: Latanoprost 0.005% Ophth Soln 2.5 ml Bottle L EYE SCH (21:17)
[2023-06-22] MEDS: Folic Acid 1 MG TAB PO SCH (21:18)
[2023-06-23] MEDS: HYDROcodone/Acetaminophen 10/325 mg Tablet PO PRN ×2 (03:23→10:17)
[2023-06-23] MEDS: Ipratropium/Albuterol 3 ML NEB NEB SCH ×6 (03:45→23:30)
[2023-06-23 04:09] LABS: Anion Gap 19 mmol/L (10-20); BUN (Urea Nitrogen) 49 mg/dL (8.4-25.7); Calc. Creatinine Clearance 54 mL/min (70-130); Carbon Dioxide 15 mmol/L (23-31); Chloride 107 mmol/L (98-107); Estimated GFR 45; Glucose 102 mg/dL (83-110); Potassium 3.9 mmol/L (3.5-5.1); Sodium 137 mmol/L (136-145)
[2023-06-23 04:16] LABS: #Monocytes 0.6 10x3/uL (0.0-1.1); #Neutrophils 7.5 10x3/uL (1.5-8.4); %Basophils 0.1 % (0.0-2.0); %Eosinophils 0.1 % (0.0-6.0); %Lymphocytes 4.2 % (18.0-47.0); %Monocytes 6.9 % (0.0-10.0); %Neutrophils 87.9 % (40.0-75.0); Hematocrit 30.1 % (38.8-50.0); Mean Corpuscular HGB CONC 36.5 g/dL (32.0-36.0); Mean Corpuscular Hemoglobin 34.8 pg (27.0-33.0); Mean Corpuscular Volume 95.3 fl (81.2-95.1); Platelet Count 104 10x3/uL (150-450); RBC Distribution Width 19.2 % (11.5-14.5); Red Blood Cell (RBC) Count 3.16 10x6/uL (4.32-5.72); White Blood Cell (WBC) Count 8.5 10x3/uL (3.5-10.5)
[2023-06-23] MEDS: Budesonide 0.25 MG/2 ML NEB INH SCH ×2 (07:20→19:35)
[2023-06-23] MEDS: Furosemide 40 MG (4 mL) VIAL SLOW IVP SCH (08:36)
[2023-06-23] MEDS: Multivitamin W/ Minerals 1 TAB PO SCH (08:37)
[2023-06-23] MEDS: predniSONE 20 MG TAB PO SCH (08:37)
[2023-06-23] MEDS: Apixaban 5 MG TAB PO SCH ×2 (08:37→20:26)
[2023-06-23] MEDS: Escitalopram Oxalate 10 mg Tablet PO SCH (08:38)
[2023-06-23] MEDS: Allopurinol 100 MG TAB PO SCH (08:38)
[2023-06-23] MEDS: valACYclovir 500 MG TAB PO SCH ×2 (08:38→20:26)
[2023-06-23] MEDS: PHOS-NAK 1 PKT PACK PO SCH (08:38)
[2023-06-23] MEDS: Senokot S 8.6-50 MG TAB PO SCH ×2 (08:39→20:25)
[2023-06-23] MEDS: Timolol 0.5% Ophth Soln 5 ml Bottle EA EYE SCH ×2 (08:39→20:26)
[2023-06-23] MEDS: guaiFENesin/DM ER PO SCH ×3 (09:08→20:39)
[2023-06-23] MEDS: Piperacillin/Tazobactam 3.375 GM in Sodium Chloride 0.9% 100 ML IVPB SCH ×3 (09:08→20:25)
[2023-06-23] MEDS: Brimonidine Tartrate 0.2% Ophth Soln 5 ml Bottle EA EYE SCH ×3 (09:08→20:37)
[2023-06-23] MEDS: Polyethylene Glycol 3350 17 GM Packet PO PRN (17:06)
[2023-06-23] MEDS: Folic Acid 1 MG TAB PO SCH (20:25)
[2023-06-23] MEDS: Latanoprost 0.005% Ophth Soln 2.5 ml Bottle L EYE SCH (20:25)
[2023-06-23] MEDS: Melatonin 3 MG TAB PO SCH (20:25)
[2023-06-23] MEDS: Tamsulosin HCl 0.4 MG CAP PO SCH (20:25)
[2023-06-23] MEDS: Rosuvastatin 20 MG TAB PO SCH (20:26)
[2023-06-23] MEDS: Cyanocobalamin (Vitamin B-12) 1,000 MCG TAB PO SCH (20:26)
[2023-06-23] MEDS: Ondansetron PF 4 MG/2 ML Vial IVP PRN (21:02)
[2023-06-23] MEDS ORDERED: Lactated Ringer's 500 ML IV SCH (22:30)
[2023-06-24] MEDS ORDERED: Lactated Ringer's 500 ML IV SCH ×2 (00:15→02:15)
[2023-06-24 02:56] LABS: Hemoglobin 10.4 g/dL (13.5-17.5); Mean Corpuscular HGB CONC 35.9 g/dL (32.0-36.0); Mean Corpuscular Hemoglobin 34.3 pg (27.0-33.0); Mean Corpuscular Volume 95.7 fl (81.2-95.1); Red Blood Cell (RBC) Count 3.03 10x6/uL (4.32-5.72); White Blood Cell (WBC) Count 7.5 10x3/uL (3.5-10.5)
[2023-06-24 02:58] LABS: #Monocytes 0.6 10x3/uL (0.0-1.1); #Neutrophils 6.7 10x3/uL (1.5-8.4); %Basophils 0.1 % (0.0-2.0); %Eosinophils 0.1 % (0.0-6.0); %Lymphocytes 4.1 % (18.0-47.0); %Monocytes 7.4 % (0.0-10.0); %Neutrophils 87.6 % (40.0-75.0); Platelet Count 109 10x3/uL (150-450)
[2023-06-24] MEDS: Ipratropium/Albuterol 3 ML NEB NEB SCH ×6 (03:00→23:00)
[2023-06-24 03:09] LABS: Anion Gap 17 mmol/L (10-20); BUN (Urea Nitrogen) 77 mg/dL (8.4-25.7); Calc. Creatinine Clearance 35 mL/min (70-130); Calcium 6.6 mg/dL (7.8-10.44); Carbon Dioxide 16 mmol/L (23-31); Chloride 106 mmol/L (98-107); Estimated GFR 27; Glucose 101 mg/dL (83-110); Sodium 135 mmol/L (136-145)
[2023-06-24] MEDS: CALCIUM GLUC 1 GM/NS 50 ML 1 GM in Premix 1 BAG IVPB SCH ×2 (03:33→04:36)
[2023-06-24] MEDS: Acetaminophen 325 MG TAB PO PRN ×2 (04:38→20:37)
[2023-06-24] MEDS: Piperacillin/Tazobactam 3.375 GM in Sodium Chloride 0.9% 100 ML IVPB SCH ×3 (05:33→20:37)
[2023-06-24] MEDS: Budesonide 0.25 MG/2 ML NEB INH SCH ×2 (06:45→19:55)
[2023-06-24] MEDS ORDERED: Sodium Chloride 0.9% 1,000 ML IV SCH (07:15)
[2023-06-24] MEDS: Allopurinol 100 MG TAB PO SCH (08:47)
[2023-06-24] MEDS: guaiFENesin/DM ER PO SCH ×2 (08:47→20:38)
[2023-06-24] MEDS: Senokot S 8.6-50 MG TAB PO SCH ×2 (08:48→20:38)
[2023-06-24] MEDS: Apixaban 5 MG TAB PO SCH ×2 (08:48→20:38)
[2023-06-24] MEDS: predniSONE 20 MG TAB PO SCH (08:48)
[2023-06-24] MEDS: Escitalopram Oxalate 10 mg Tablet PO SCH (08:48)
[2023-06-24] MEDS: Multivitamin W/ Minerals 1 TAB PO SCH (08:48)
[2023-06-24] MEDS: valACYclovir 500 MG TAB PO SCH ×2 (08:56→20:38)
[2023-06-24] MEDS ORDERED: Digoxin 0.5 MG/2 ML AMP SLOW IVP SCH ×2 (10:30→12:00)
[2023-06-24] MEDS: Albumin 25% 25 GM (100 mL) BOT IVPB SCH ×2 (11:07→17:47)
[2023-06-24] MEDS ORDERED: Sodium Bicarbonate 150 MEQ in Dextrose 5% in Water 1,000 ML IV SCH (11:30)
[2023-06-24] MEDS: Brimonidine Tartrate 0.2% Ophth Soln 5 ml Bottle EA EYE SCH ×2 (12:16→20:40)
[2023-06-24] MEDS: Timolol 0.5% Ophth Soln 5 ml Bottle EA EYE SCH ×2 (12:16→20:39)
[2023-06-24] MEDS ORDERED: Metoprolol Tartrate 5 MG (5 mL) VIAL IVP PRN (14:05)
[2023-06-24] MEDS ORDERED: Metoprolol Tartrate 5 MG (5 mL) VIAL IVP SCH (14:15)
[2023-06-24] MEDS: Calcium Carbonate 500 MG TAB PO SCH ×2 (15:56→20:38)
[2023-06-24] MEDS: Tamsulosin HCl 0.4 MG CAP PO SCH (20:38)
[2023-06-24] MEDS: Folic Acid 1 MG TAB PO SCH (20:38)
[2023-06-24] MEDS: Cyanocobalamin (Vitamin B-12) 1,000 MCG TAB PO SCH (20:38)
[2023-06-24] MEDS: Rosuvastatin 20 MG TAB PO SCH (20:38)
[2023-06-24] MEDS: Melatonin 3 MG TAB PO SCH (20:38)
[2023-06-24] MEDS: Latanoprost 0.005% Ophth Soln 2.5 ml Bottle L EYE SCH (20:40)
[2023-06-24] MEDS ORDERED: Metoprolol Tartrate 25 MG TAB PO SCH (21:00)
[2023-06-24] MEDS: guaiFENesin/Codeine Phosphate 100 mg/10 mg 5 ml UD Cup PO PRN (22:15)
[2023-06-24] MEDS: tiZANidine HCl 4 MG TAB PO PRN (22:48)
[2023-06-24] MEDS ORDERED: Lactated Ringer's 1,000 ML IV SCH (23:45)
[2023-06-25] MEDS: Albumin 25% 25 GM (100 mL) BOT IVPB SCH ×2 (00:03→05:55)
[2023-06-25] MEDS ORDERED: Lactated Ringer's 500 ML IV SCH (01:15)
[2023-06-25] MEDS ORDERED: Digoxin 0.5 MG/2 ML AMP SLOW IVP SCH (01:15)
[2023-06-25] MEDS: Ipratropium/Albuterol 3 ML NEB NEB SCH ×3 (01:30→18:54)
[2023-06-25] MEDS ORDERED: Sodium Bicarbonate 150 MEQ in Dextrose 5% in Water 1,000 ML IV SCH (02:00)
[2023-06-25 03:30] LABS: #Monocytes 0.7 10x3/uL (0.0-1.1); #Neutrophils 6.7 10x3/uL (1.5-8.4); %Basophils 0.1 % (0.0-2.0); %Eosinophils 0.4 % (0.0-6.0); %Lymphocytes 4.7 % (18.0-47.0); %Monocytes 8.9 % (0.0-10.0); %Neutrophils 85.4 % (40.0-75.0); Hematocrit 25.2 % (38.8-50.0); Hemoglobin 9.2 g/dL (13.5-17.5); Mean Corpuscular HGB CONC 36.8 g/dL (32.0-36.0); Mean Corpuscular Hemoglobin 34.9 pg (27.0-33.0); Mean Corpuscular Volume 94.6 fl (81.2-95.1); Platelet Count 79 10x3/uL (150-450); RBC Distribution Width 19.3 % (11.5-14.5); Red Blood Cell (RBC) Count 2.61 10x6/uL (4.32-5.72); White Blood Cell (WBC) Count 7.9 10x3/uL (3.5-10.5)
[2023-06-25 04:16] LABS: Anion Gap 19 mmol/L (10-20); BUN (Urea Nitrogen) 92 mg/dL (8.4-25.7); Calc. Creatinine Clearance 30 mL/min (70-130); Carbon Dioxide 18 mmol/L (23-31); Chloride 102 mmol/L (98-107); Estimated GFR 22; Glucose 99 mg/dL (83-110); Magnesium 2.1 mg/dL (1.6-2.6); Potassium 3.4 mmol/L (3.5-5.1); Sodium 136 mmol/L (136-145)
[2023-06-25 04:21] LABS: Calcium 6.9 mg/dL (7.8-10.44)
[2023-06-25] MEDS: Piperacillin/Tazobactam 3.375 GM in Sodium Chloride 0.9% 100 ML IVPB SCH ×3 (05:03→20:21)
[2023-06-25] MEDS ORDERED: Potassium Chloride 20 MEQ TAB PO SCH (05:15)
[2023-06-25 05:50] LABS: Actual Bicarbonate (HCO3v) 19.4 mEq/L (22-28); Analyzer IN Cardio CS ICU; Base Excess -5.8 mEq/L (-2 - +2); Chloride (VBG) 100 mmol/L (98-106); Critical Notified Whom: RN-Demi; Hematocrit-VBG 29 % (42.0-52.0); Hemoglobin (Hb) 9.9 g/dL (12.6-17.4); Puncture Site Other Site; RapidComm Collect By LAB.YY; Sodium 133 mmol/L (133-146); pH (venous) 7.336 (7.32-7.43)
[2023-06-25] MEDS: Acetaminophen 325 MG TAB PO PRN ×2 (05:54→23:21)
[2023-06-25] MEDS: Budesonide 0.25 MG/2 ML NEB INH SCH (07:15)
[2023-06-25] MEDS: Multivitamin W/ Minerals 1 TAB PO SCH (09:03)
[2023-06-25] MEDS: Calcium Carbonate 500 MG TAB PO SCH ×3 (09:03→20:22)
[2023-06-25] MEDS: guaiFENesin/DM ER PO SCH ×2 (09:03→20:22)
[2023-06-25] MEDS: valACYclovir 500 MG TAB PO SCH ×2 (09:03→20:22)
[2023-06-25] MEDS: Escitalopram Oxalate 10 mg Tablet PO SCH (09:04)
[2023-06-25] MEDS: Apixaban 5 MG TAB PO SCH ×2 (09:04→20:22)
[2023-06-25] MEDS: predniSONE 20 MG TAB PO SCH (09:04)
[2023-06-25] MEDS: Allopurinol 100 MG TAB PO SCH (09:05)
[2023-06-25] MEDS: Digoxin 0.125 MG TAB PO SCH (09:05)
[2023-06-25] MEDS: Senokot S 8.6-50 MG TAB PO SCH ×2 (09:05→20:23)
[2023-06-25] MEDS: Timolol 0.5% Ophth Soln 5 ml Bottle EA EYE SCH ×2 (09:06→20:23)
[2023-06-25] MEDS: Brimonidine Tartrate 0.2% Ophth Soln 5 ml Bottle EA EYE SCH ×2 (09:12→20:21)
[2023-06-25] MEDS ORDERED: Ipratropium/Albuterol 3 ML NEB EZPAP PRN (09:14)
[2023-06-25] MEDS ORDERED: Ipratropium/Albuterol 3 ML NEB NEB SCH (15:00)
[2023-06-25] MEDS: Polyethylene Glycol 3350 17 GM Packet PO PRN (15:04)
[2023-06-25] MEDS: HYDROcodone/Acetaminophen 10/325 mg Tablet PO PRN (18:36)
[2023-06-25] MEDS: Melatonin 3 MG TAB PO SCH (20:22)
[2023-06-25] MEDS: Tamsulosin HCl 0.4 MG CAP PO SCH (20:22)
[2023-06-25] MEDS: Cyanocobalamin (Vitamin B-12) 1,000 MCG TAB PO SCH (20:22)
[2023-06-25] MEDS: Latanoprost 0.005% Ophth Soln 2.5 ml Bottle L EYE SCH (20:22)
[2023-06-25] MEDS: Rosuvastatin 20 MG TAB PO SCH (20:22)
[2023-06-25] MEDS: Folic Acid 1 MG TAB PO SCH (20:23)
[2023-06-25] MEDS: Piperacillin/Tazobactam 2.25 GM in Sodium Chloride 0.9% 100 ML IVPB SCH ×2 (21:18→21:19)
[2023-06-26] MEDS: HYDROcodone/Acetaminophen 10/325 mg Tablet PO PRN (00:07)
[2023-06-26] MEDS: Ondansetron PF 4 MG/2 ML Vial IVP PRN (02:18)
[2023-06-26] MEDS: Piperacillin/Tazobactam 3.375 GM in Sodium Chloride 0.9% 100 ML IVPB SCH ×3 (04:33→20:38)
[2023-06-26 05:40] LABS: Anion Gap 20 mmol/L (10-20); BUN (Urea Nitrogen) 92 mg/dL (8.4-25.7); Calc. Creatinine Clearance 27 mL/min (70-130); Carbon Dioxide 19 mmol/L (23-31); Chloride 99 mmol/L (98-107); Estimated GFR 19; Glucose 96 mg/dL (83-110); Potassium 3.5 mmol/L (3.5-5.1); Sodium 134 mmol/L (136-145)
[2023-06-26 05:45] LABS: #Monocytes 0.8 10x3/uL (0.0-1.1); #Neutrophils 6.4 10x3/uL (1.5-8.4); %Eosinophils 0.3 % (0.0-6.0); %Lymphocytes 2.8 % (18.0-47.0); %Monocytes 10.3 % (0.0-10.0); %Neutrophils 85.5 % (40.0-75.0); Hematocrit 29.8 % (38.8-50.0); Hemoglobin 10.5 g/dL (13.5-17.5); Mean Corpuscular HGB CONC 35.2 g/dL (32.0-36.0); Mean Corpuscular Hemoglobin 34.4 pg (27.0-33.0); Mean Corpuscular Volume 97.7 fl (81.2-95.1); Platelet Count 114 10x3/uL (150-450); RBC Distribution Width 19.9 % (11.5-14.5); Red Blood Cell (RBC) Count 3.05 10x6/uL (4.32-5.72); White Blood Cell (WBC) Count 7.5 10x3/uL (3.5-10.5)
[2023-06-26 05:48] LABS: Calcium 6.6 mg/dL (7.8-10.44)
[2023-06-26] MEDS: Ipratropium/Albuterol 3 ML NEB NEB SCH ×3 (07:04→22:50)
[2023-06-26] MEDS: Timolol 0.5% Ophth Soln 5 ml Bottle EA EYE SCH ×2 (08:14→20:41)
[2023-06-26] MEDS: Acetaminophen 325 MG TAB PO PRN ×2 (08:15→17:03)
[2023-06-26] MEDS: Escitalopram Oxalate 10 mg Tablet PO SCH (08:15)
[2023-06-26] MEDS: predniSONE 20 MG TAB PO SCH (08:15)
[2023-06-26] MEDS: Apixaban 5 MG TAB PO SCH ×2 (08:15→20:39)
[2023-06-26] MEDS: guaiFENesin/DM ER PO SCH ×2 (08:16→20:39)
[2023-06-26] MEDS: tiZANidine HCl 4 MG TAB PO PRN ×2 (08:16→22:56)
[2023-06-26] MEDS: valACYclovir 500 MG TAB PO SCH ×2 (08:16→20:40)
[2023-06-26] MEDS: guaiFENesin/Codeine Phosphate 100 mg/10 mg 5 ml UD Cup PO PRN ×2 (08:16→17:03)
[2023-06-26] MEDS: Digoxin 0.125 MG TAB PO SCH (08:16)
[2023-06-26] MEDS: Allopurinol 100 MG TAB PO SCH (08:16)
[2023-06-26] MEDS: Calcium Carbonate 500 MG TAB PO SCH ×3 (08:17→20:56)
[2023-06-26] MEDS: Senokot S 8.6-50 MG TAB PO SCH ×2 (08:21→20:41)
[2023-06-26] MEDS: Brimonidine Tartrate 0.2% Ophth Soln 5 ml Bottle EA EYE SCH ×2 (08:22→21:05)
[2023-06-26] MEDS: Multivitamin W/ Minerals 1 TAB PO SCH (08:22)
[2023-06-26] MEDS ORDERED: Sodium Bicarbonate 150 MEQ, Admixture Fee 1 EACH in Dextrose 5% in Water 1,000 ML IV SCH (11:00)
[2023-06-26] MEDS ORDERED: Potassium Chloride 20 MEQ TAB PO SCH (12:00)
[2023-06-26] MEDS: Tamsulosin HCl 0.4 MG CAP PO SCH (20:39)
[2023-06-26] MEDS: Rosuvastatin 20 MG TAB PO SCH (20:39)
[2023-06-26] MEDS: Melatonin 3 MG TAB PO SCH (20:40)
[2023-06-26] MEDS: Cyanocobalamin (Vitamin B-12) 1,000 MCG TAB PO SCH (20:40)
[2023-06-26] MEDS: Folic Acid 1 MG TAB PO SCH (20:40)
[2023-06-26] MEDS: Latanoprost 0.005% Ophth Soln 2.5 ml Bottle L EYE SCH (21:06)
[2023-06-27 03:41] LABS: Hematocrit 27.1 % (38.8-50.0); Hemoglobin 9.9 g/dL (13.5-17.5); Mean Corpuscular HGB CONC 36.5 g/dL (32.0-36.0); Mean Corpuscular Hemoglobin 35.5 pg (27.0-33.0); Mean Corpuscular Volume 97.1 fl (81.2-95.1); RBC Distribution Width 20.4 % (11.5-14.5); Red Blood Cell (RBC) Count 2.79 10x6/uL (4.32-5.72); White Blood Cell (WBC) Count 7.7 10x3/uL (3.5-10.5)
[2023-06-27] MEDS: Piperacillin/Tazobactam 3.375 GM in Sodium Chloride 0.9% 100 ML IVPB SCH (03:42)
[2023-06-27 03:53] LABS: Anion Gap 18 mmol/L (10-20); BUN (Urea Nitrogen) 102 mg/dL (8.4-25.7); Calc. Creatinine Clearance 24 mL/min (70-130); Carbon Dioxide 19 mmol/L (23-31); Chloride 97 mmol/L (98-107); Estimated GFR 18; Glucose 107 mg/dL (83-110); Potassium 3.1 mmol/L (3.5-5.1); Sodium 131 mmol/L (136-145)
[2023-06-27 03:59] LABS: Lymphocytes 6 % (21-51); Monocytes 9 % (0-10); Neutrophil 85 % (42-75); Nucleated RBC (Manual Ct) 3 % (0)
[2023-06-27 04:00] LABS: Calcium 6.3 mg/dL (7.8-10.44); Crenated RBC MODERATE= 6-15 cells (100X) (None Seen); Polychromasia SLIGHT = 2-3 cells (100X) (0-2/hpf)
[2023-06-27 04:01] LABS: MDiff Complete? YES; Platelet Adequacy Comment Appears Decreased
[2023-06-27 04:03] LABS: Platelet Count 120 10x3/uL (130-400)
[2023-06-27] MEDS: Acetaminophen 325 MG TAB PO PRN (06:37)
[2023-06-27] MEDS: Ipratropium/Albuterol 3 ML NEB NEB SCH ×3 (07:28→19:40)
[2023-06-27] MEDS: Digoxin 0.125 MG TAB PO SCH (08:56)
[2023-06-27] MEDS: predniSONE 20 MG TAB PO SCH (08:56)
[2023-06-27] MEDS: guaiFENesin/DM ER PO SCH ×2 (08:56→21:30)
[2023-06-27] MEDS: Allopurinol 100 MG TAB PO SCH (08:56)
[2023-06-27] MEDS: Multivitamin W/ Minerals 1 TAB PO SCH (08:57)
[2023-06-27] MEDS: Escitalopram Oxalate 10 mg Tablet PO SCH (08:57)
[2023-06-27] MEDS: Timolol 0.5% Ophth Soln 5 ml Bottle EA EYE SCH ×2 (08:57→23:58)
[2023-06-27] MEDS: Senokot S 8.6-50 MG TAB PO SCH ×2 (08:57→21:30)
[2023-06-27] MEDS: Brimonidine Tartrate 0.2% Ophth Soln 5 ml Bottle EA EYE SCH ×2 (08:58→23:57)
[2023-06-27] MEDS: Calcium Carbonate 500 MG TAB PO SCH ×3 (08:58→21:30)
[2023-06-27] MEDS: Apixaban 5 MG TAB PO SCH (09:11)
[2023-06-27] MEDS: valACYclovir 500 MG TAB PO SCH (09:11)
[2023-06-27] MEDS ORDERED: Potassium Chloride 20 MEQ TAB PO SCH (10:00)
[2023-06-27] MEDS ORDERED: HYDROcodone/Acetaminophen 5/325 mg Tablet PO PRN (20:25)
[2023-06-27] MEDS ORDERED: Morphine 2 MG/ML VIAL SLOW IVP SCH (20:30)
[2023-06-27] MEDS: Melatonin 3 MG TAB PO SCH (21:20)
[2023-06-27] MEDS: Tamsulosin HCl 0.4 MG CAP PO SCH (21:21)
[2023-06-27] MEDS: Cyanocobalamin (Vitamin B-12) 1,000 MCG TAB PO SCH (21:30)
[2023-06-27] MEDS: Folic Acid 1 MG TAB PO SCH (21:30)
[2023-06-27] MEDS: HYDROcodone/Acetaminophen 10/325 mg Tablet PO PRN (22:51)
[2023-06-27] MEDS: Latanoprost 0.005% Ophth Soln 2.5 ml Bottle L EYE SCH (23:57)
[2023-06-28] MEDS: Morphine 2 MG/ML VIAL SLOW IVP PRN ×4 (00:07→17:35)
[2023-06-28] MEDS ORDERED: Lidocaine 4% Patch TD SCH (00:15)
[2023-06-28] MEDS: Ipratropium/Albuterol 3 ML NEB NEB SCH ×3 (07:00→19:08)
[2023-06-28] MEDS: Senokot S 8.6-50 MG TAB PO SCH ×2 (08:35→22:44)
[2023-06-28] MEDS: HYDROcodone/Acetaminophen 10/325 mg Tablet PO PRN ×3 (08:35→22:51)
[2023-06-28] MEDS: guaiFENesin/DM ER PO SCH ×2 (08:35→22:33)
[2023-06-28] MEDS: Calcium Carbonate 500 MG TAB PO SCH ×3 (08:35→22:33)
[2023-06-28] MEDS: predniSONE 20 MG TAB PO SCH (08:35)
[2023-06-28] MEDS: Escitalopram Oxalate 10 mg Tablet PO SCH (08:36)
[2023-06-28] MEDS: Multivitamin W/ Minerals 1 TAB PO SCH (08:36)
[2023-06-28] MEDS: Allopurinol 100 MG TAB PO SCH (08:36)
[2023-06-28] MEDS: Timolol 0.5% Ophth Soln 5 ml Bottle EA EYE SCH ×3 (08:37→22:38)
[2023-06-28] MEDS: Brimonidine Tartrate 0.2% Ophth Soln 5 ml Bottle EA EYE SCH ×2 (08:37→22:29)
[2023-06-28] MEDS ORDERED: LIDOCAINE Patch Removal TOP SCH (12:00)
[2023-06-28 15:39] LABS: IgA - Total IgA (Sendout) 174 mg/dL (61-437); Immunoglobulin - G (Sendout) 338 mg/dL (603-1613); Immunoglobulin - M (Sendout) 26 mg/dL (15-143)
[2023-06-28 16:39] LABS: A/G Ratio 1.1 (0.7-1.7); Albumin 2.5 g/dL (2.9-4.4); Alpha 1 0.3 g/dL (0.0-0.4); Alpha 2 0.9 g/dL (0.4-1.0); Beta 0.7 g/dL (0.7-1.3); Gamma 0.4 g/dL (0.4-1.8); Globulin, Total 2.2 g/dL (2.2-3.9); M-Spike Not Observed g/dL (Not Observed)
[2023-06-28 16:39] LABS: Albumin-Ur 14.8 % (.); Alpha 1 - Ur 9.4 % (.); Alpha 2 - Ur 18.4 % (.); Beta-Ur 47.5 % (.); Gamma-Ur 9.9 % (.); M-Spike,% 34.8 % (Not Observed); Protein, Urine 82.4 mg/dL (Not Estab.)
[2023-06-28] MEDS: Latanoprost 0.005% Ophth Soln 2.5 ml Bottle L EYE SCH (22:30)
[2023-06-28] MEDS: Folic Acid 1 MG TAB PO SCH (22:33)
[2023-06-28] MEDS: Cyanocobalamin (Vitamin B-12) 1,000 MCG TAB PO SCH (22:33)
[2023-06-28] MEDS: Tamsulosin HCl 0.4 MG CAP PO SCH (22:43)
[2023-06-28] MEDS: Melatonin 3 MG TAB PO SCH (22:43)
[2023-06-29] MEDS: Morphine 2 MG/ML VIAL SLOW IVP PRN ×3 (05:35→22:24)
[2023-06-29] MEDS: Ipratropium/Albuterol 3 ML NEB NEB SCH ×3 (06:50→19:18)
[2023-06-29] MEDS: Benzocaine/Menthol 1 LOZ LOZ PO PRN ×3 (10:29→22:26)
[2023-06-29] MEDS: Senokot S 8.6-50 MG TAB PO SCH ×2 (10:30→22:44)
[2023-06-29] MEDS: Escitalopram Oxalate 10 mg Tablet PO SCH (10:33)
[2023-06-29] MEDS: predniSONE 20 MG TAB PO SCH (10:38)
[2023-06-29] MEDS: Allopurinol 100 MG TAB PO SCH (10:39)
[2023-06-29] MEDS: Calcium Carbonate 500 MG TAB PO SCH ×3 (10:39→22:25)
[2023-06-29] MEDS: guaiFENesin/DM ER PO SCH ×2 (10:40→22:25)
[2023-06-29] MEDS: Brimonidine Tartrate 0.2% Ophth Soln 5 ml Bottle EA EYE SCH ×2 (10:41→22:27)
[2023-06-29] MEDS: Timolol 0.5% Ophth Soln 5 ml Bottle EA EYE SCH ×2 (10:42→22:45)
[2023-06-29] MEDS: Multivitamin W/ Minerals 1 TAB PO SCH (10:44)
[2023-06-29] MEDS: HYDROcodone/Acetaminophen 10/325 mg Tablet PO PRN ×2 (10:51→18:14)
[2023-06-29] MEDS: Folic Acid 1 MG TAB PO SCH (22:25)
[2023-06-29] MEDS: Melatonin 3 MG TAB PO SCH (22:25)
[2023-06-29] MEDS: Tamsulosin HCl 0.4 MG CAP PO SCH (22:25)
[2023-06-29] MEDS: Cyanocobalamin (Vitamin B-12) 1,000 MCG TAB PO SCH (22:26)
[2023-06-29] MEDS: Latanoprost 0.005% Ophth Soln 2.5 ml Bottle L EYE SCH (22:26)
[2023-06-30] MEDS: HYDROcodone/Acetaminophen 10/325 mg Tablet PO PRN ×2 (05:15→13:21)
[2023-06-30] MEDS: Ipratropium/Albuterol 3 ML NEB NEB SCH ×2 (07:10→14:00)
[2023-06-30] MEDS: Morphine 2 MG/ML VIAL SLOW IVP PRN ×2 (09:08→15:09)
[2023-06-30] MEDS: predniSONE 20 MG TAB PO SCH (09:09)
[2023-06-30] MEDS: Escitalopram Oxalate 10 mg Tablet PO SCH (09:09)
[2023-06-30] MEDS: Multivitamin W/ Minerals 1 TAB PO SCH (09:09)
[2023-06-30] MEDS: Allopurinol 100 MG TAB PO SCH (09:09)
[2023-06-30] MEDS: Brimonidine Tartrate 0.2% Ophth Soln 5 ml Bottle EA EYE SCH (09:10)
[2023-06-30] MEDS: guaiFENesin/DM ER PO SCH (09:11)
[2023-06-30] MEDS: Calcium Carbonate 500 MG TAB PO SCH ×2 (09:11→14:47)
[2023-06-30] MEDS: Timolol 0.5% Ophth Soln 5 ml Bottle EA EYE SCH (09:11)
[2023-06-30] MEDS: Senokot S 8.6-50 MG TAB PO SCH (09:11)
[2023-06-30 12:52] VITALS: BP 114/60; TEMP 98
== END 2023-06-30 16:01 | disposition hospice, home (50) | DRG 871 ==
LOC: CSHERS 22:10 → CSHIMCU 22:30 → CSHTELE 06-07 15:02 → CSHIMCU 06-14 10:27 → CSHTELE 06-27 16:04
PROVIDERS: ADMIT Family Medicine; ATTEND Internal Medicine
PROC: 3E033XZ Introduction of Vasopressor into Peripheral Vein, Percutaneous Approach (ICD-10-PCS; 2023-06-05)
PROC: 3E03329 Introduction of Other Anti-infective into Peripheral Vein, Percutaneous Approach (ICD-10-PCS; 2023-06-05)
PROC: 4A133R1 Monitoring of Arterial Saturation, Peripheral, Percutaneous Approach (ICD-10-PCS; principal; 2023-06-14)
PROC: 5A0955A Assistance with Respiratory Ventilation, Greater than 96 Consecutive Hours, High Flow/Velocity Cannula (ICD-10-PCS; 2023-06-14)
PROC: 5A09357 Assistance with Respiratory Ventilation, Less than 24 Consecutive Hours, Continuous Positive Airway Pressure (ICD-10-PCS; 2023-06-15)
PROC: 30233J1 Transfusion of Nonautologous Serum Albumin into Peripheral Vein, Percutaneous Approach (ICD-10-PCS; 2023-06-24)
PROC: 4A043R1 Measurement of Venous Saturation, Peripheral, Percutaneous Approach (ICD-10-PCS; 2023-06-25)
DX: A41.9 Sepsis, unspecified organism (principal); G93.41 Metabolic encephalopathy; I21.A1 Myocardial infarction type 2; R65.21 Severe sepsis with septic shock; J96.01 Acute respiratory failure with hypoxia; J10.08 Influenza due to other identified influenza virus with other specified pneumonia; J15.9 Unspecified bacterial pneumonia; D84.9 Immunodeficiency, unspecified; N17.9 Acute kidney failure, unspecified; C90.00 Multiple myeloma not having achieved remission; E87.20 Acidosis, unspecified; D61.818 Other pancytopenia; D80.1 Nonfamilial hypogammaglobulinemia; Z66 Do not resuscitate; E78.5 Hyperlipidemia, unspecified; I25.10 Atherosclerotic heart disease of native coronary artery without angina pectoris; R49.0 Dysphonia; I95.9 Hypotension, unspecified; N40.0 Benign prostatic hyperplasia without lower urinary tract symptoms; I48.0 Paroxysmal atrial fibrillation; E87.6 Hypokalemia; E83.42 Hypomagnesemia; E83.51 Hypocalcemia; D70.9 Neutropenia, unspecified; R50.81 Fever presenting with conditions classified elsewhere; G89.4 Chronic pain syndrome; R79.89 Other specified abnormal findings of blood chemistry; Z86.73 Personal history of transient ischemic attack (TIA), and cerebral infarction without residual deficits; Z95.818 Presence of other cardiac implants and grafts; Z11.52 Encounter for screening for COVID-19; Z79.899 Other long term (current) drug therapy; Z98.890 Other specified postprocedural states; Z98.49 Cataract extraction status, unspecified eye; Z90.89 Acquired absence of other organs; Z90.49 Acquired absence of other specified parts of digestive tract; Z87.891 Personal history of nicotine dependence; Z79.01 Long term (current) use of anticoagulants
CPT/HCPCS: 36415; 36416; 36600; 71045; 71250; 71275; 80048; 80053; 80202; 80306; 80307; 81001; 82040; 82140; 82805; 83605; 83735; 83880; 84100; 84145; 84155; 84156; 84165; 84166; 84484; 85025; 85060; 86140; 86334; 87040; 87077; 87081; 87324; 87449; 87633; 89190; 93005; 93010; 93306; 94640; 94660; 94760; 94762; 96374; 96375; 97139; C9113; J0612; J0613; J0692; J1160; J1447; J1459; J1720; J1940; J1956; J2248; J2272; J2405; J2543; J3370; J3475; J3480; J3490; J7030; J7042; J7050; J7070; J7120; J7512; J7620; J7626; P9047; Q9967